=== PATIENT | female | born 1930 | race Caucasian/White ===

== ENCOUNTER 2016-12-15 08:36 | Day surgery (SDC) | payer MEDICARE ==
[2016-12-09 11:05] VITALS: BMI 39.8
[~2016-12-15 08:36] MED LIST: LACTATED RINGERS 1,000 ML IV SCH
[2016-12-15 09:12] VITALS: RESP 18
[2016-12-15 09:22] VITALS: TEMP 98.1
[2016-12-15] MEDS: PHENYLEPHRINE 10% OPHTH DROPS 5 ML BTL OP ONE ×3 (09:22→09:46)
[2016-12-15] MEDS: FLURBIPROFEN 0.03% OPHTH DROPS 2.5 ML BTL OP ONE ×3 (09:24→09:48)
[2016-12-15] MEDS: CYCLOPENTOLATE 1% OPHTH SOLN 2 ML BTL OP ONE ×3 (09:34→09:50)
[2016-12-15] MEDS ORDERED: LIDOCAINE 1% 20 ML VIAL (10MG/ML) FOR IV START INTRADERMA ONE (09:41)
[2016-12-15] MEDS ORDERED: LIDOCAINE 1% INJ 10MG/ML (20 ML MDV) ONE (09:55)
[2016-12-15] MEDS ORDERED: PROPOFOL 10 MG/ML 20 ML VIAL IV ONE (09:55)
[2016-12-15] MEDS ORDERED: BALANCED SALT IRRIG SOLN COMB2 15 ML IRRIG.SOLN INTRAOCULA ONE (09:57)
[2016-12-15] MEDS ORDERED: HYALURONATE SODIUM INTRAOCULAR 1 EACH SYRINGE (10MG/ML) INTRAOCULA ONE (09:57)
[2016-12-15] MEDS ORDERED: EPINEPHrine (PF) 0.5 ML in BALANCED SALT IRRIG SOLN COMB2 500 ML IRRIGATION ONE (09:58)
--- NOTE | 2016-12-15 10:16 | P.OP ---
Date of Procedure: 12/15/16 Procedure(s) Performed: PREOPERATIVE DIAGNOSIS: Cataract, right eye. POSTOPERATIVE DIAGNOSIS: Cataract, right eye. OPERATION: Phacoemulsification cataract, right eye. DESCRIPTION OF PROCEDURE: The patient was taken to the preoperative holding area. Intravenous Propofol was given so as to bring about adequate sedation. The following mixture was given for local anesthesia: 5 mL of 2% lidocaine, 5 mL of 0.75% Marcaine, and 1 mL of Wydase. Approximately 4 mL was injected in the retrobulbar space of the surgical eye. Additional 1 mL was then directed to the temporal area of the surgical eye. This was performed to allow adequate neurological block of the facial muscles. The patient was revived and then taken into the operative room. The patient was prepped and draped in the usual sterile manner for the operative eye. A lid speculum was put into position. The conjunctiva was resected back from the limbus in the 12 o'clock position. Bleeding was controlled with electrocautery. A #69 blade was then used and a half-thickness scleral incision approximately 1-mm posterior to the limbus was made on bare sclera. This was shelved in the clear cornea using a crescent knife. Next a 15-degree blade was used to make a stab incision at the 3 o' clock position at the corneolimbal interface. Keratome blade was then used and the superior wound was extended into the anterior chamber. Viscoelastic was injected into the anterior chamber and to maintain its form. Next, a cystotome was used and a continuous anterior capsulotomy was made without difficulty. Hydrodissection using a blunt cannula and BSS was performed. Phaco probe was then employed and a groove extending from 12 to 6 o'clock in the lens was created. A Nolan wand was used through the stab incision so as to perform a divide and conquer technique. Next an irrigation aspiration probe was utilized and any residual cortex was removed from the eye. Again, viscoelastic was injected into the anterior chamber. An Dick posterior chamber lens implant was placed in the cartridge and injected into the anterior chamber without difficulty. The SinXenoOneey hook was utilized to spin the lens into position and this was again performed without any difficulty. The irrigation and aspiration probe was again employed and any residual viscoelastic was removed from the eye. Then BSS was injected into the limbal stab incision and the anterior chamber re-inflated. The conjunctiva was reapproximated using electrocautery. One drop of 0.25% Timoptic was placed over the corneal along with TobraDex ophthalmic ointment. Two sterile patches and a Baldwin eye shield were taped into position. The patient was transported to the recovery room in stable condition. Pathology: none sent Condition: stable Disposition: same day
[2016-12-15 10:34] VITALS: BP 148/71; PULSE 57
[2016-12-15] MEDS ORDERED: TIMOLOL 0.5% OPHTH SOLN (PF) 0.2 ML DROPERETTE OP ONE (23:00)
[2016-12-15] MEDS ORDERED: BUPIVACAINE (PF) 0.75% 5 ML, LIDOCAINE 4% (PF) 5 ML, HYALURONIDASE, HUMAN RECOMB 150 UNIT MISCELLANE ONE ×3 (23:00)
[2016-12-15] MEDS ORDERED: GENTAMICIN/PREDNISOL AC OPHTH OINT 3.5GM OPHTHALMIC ONE (23:00)
== END 2016-12-15 11:06 | disposition home or self-care (01) ==
LOC: OR 08:36
PROVIDERS: ATTEND Ophthalmology
DX: H25.13 Age-related nuclear cataract, bilateral (principal); I10 Essential (primary) hypertension; I20.9 Angina pectoris, unspecified; M19.90 Unspecified osteoarthritis, unspecified site; Z79.1 Long term (current) use of non-steroidal anti-inflammatories (NSAID); Z79.82 Long term (current) use of aspirin; Z79.899 Other long term (current) drug therapy; Z88.0 Allergy status to penicillin
CPT/HCPCS: 66984; V2632; J2001 ×2; J3470; J0171; J2704; 99152; 99153

== ENCOUNTER → 2017-02-02 | Day surgery (SDC) | payer MEDICARE ==
[2017-01-29 08:14] VITALS: BMI 39.8
[~2017-02-02] MED LIST changes: +BALANCED SALT IRRIG SOLN COMB2 15 ML IRRIG.SOLN IRRIGATION ONE; +BUPIVACAINE (PF) 0.75% 5 ML, LIDOCAINE 4% (PF) 5 ML, HYALURONIDASE, HUMAN RECOMB 150 UNIT MISCELLANE ONE; +EPINEPHrine (PF) 0.5 ML in BALANCED SALT IRRIG SOLN COMB2 500 ML IRRIGATION ONE; +GENTAMICIN/PREDNISOL AC OPHTH OINT 3.5GM OPHTHALMIC ONE; +HYALURONATE SODIUM INTRAOCULAR 1 EACH SYRINGE (10MG/ML) INTRAOCULA ONE; +LIDOCAINE 1% 20 ML VIAL (10MG/ML) FOR IV START INTRADERMA PRN; +PROPOFOL 10 MG/ML 20 ML VIAL IV ONE; +Pre Op ABX Message 1 EACH MISC MISCELLANE ONE; +TIMOLOL 0.5% OPHTH SOLN (PF) 0.2 ML DROPERETTE OP ONE
[2017-02-02] MEDS: CYCLOPENTOLATE 1% OPHTH SOLN 2 ML BTL OP ONE ×3 (09:26→09:54)
[2017-02-02] MEDS: PHENYLEPHRINE 10% OPHTH DROPS 5 ML BTL OP ONE ×4 (09:29→09:57)
[2017-02-02] MEDS: FLURBIPROFEN 0.03% OPHTH DROPS 2.5 ML BTL LEFT EYE SCH ×3 (09:35→10:00)
[2017-02-02 09:47] VITALS: RESP 16; TEMP 98.1
--- NOTE | 2017-02-02 10:24 | P.OP ---
Date of Procedure: 02/02/17 Procedure(s) Performed: PREOPERATIVE DIAGNOSIS: Cataract, left eye. POSTOPERATIVE DIAGNOSIS: Cataract, left eye. OPERATION: Phacoemulsification cataract, left eye. DESCRIPTION OF PROCEDURE: The patient was taken to the preoperative holding area. Intravenous Propofol was given so as to bring about adequate sedation. The following mixture was given for local anesthesia: 5 mL of 2% lidocaine, 5 mL of 0.75% Marcaine, and 1 mL of Wydase. Approximately 4 mL was injected in the retrobulbar space of the surgical eye. Additional 1 mL was then directed to the temporal area of the surgical eye. This was performed to allow adequate neurological block of the facial muscles. The patient was revived and then taken into the operative room. The patient was prepped and draped in the usual sterile manner for the operative eye. A lid speculum was put into position. The conjunctiva was resected back from the limbus in the 12 o'clock position. Bleeding was controlled with electrocautery. A #69 blade was then used and a half-thickness scleral incision approximately 1-mm posterior to the limbus was made on bare sclera. This was shelved in the clear cornea using a crescent knife. Next a 15-degree blade was used to make a stab incision at the 3 o' clock position at the corneolimbal interface. Keratome blade was then used and the superior wound was extended into the anterior chamber. Viscoelastic was injected into the anterior chamber and to maintain its form. Next, a cystotome was used and a continuous anterior capsulotomy was made without difficulty. Hydrodissection using a blunt cannula and BSS was performed. Phaco probe was then employed and a groove extending from 12 to 6 o'clock in the lens was created. A Nolan wand was used through the stab incision so as to perform a divide and conquer technique. Next an irrigation aspiration probe was utilized and any residual cortex was removed from the eye. Again, viscoelastic was injected into the anterior chamber. An Dick posterior chamber lens implant was placed in the cartridge and injected into the anterior chamber without difficulty. The SinPowWowHRey hook was utilized to spin the lens into position and this was again performed without any difficulty. The irrigation and aspiration probe was again employed and any residual viscoelastic was removed from the eye. Then BSS was injected into the limbal stab incision and the anterior chamber re-inflated. The conjunctiva was reapproximated using electrocautery. One drop of 0.25% Timoptic was placed over the corneal along with TobraDex ophthalmic ointment. Two sterile patches and a Baldwin eye shield were taped into position. The patient was transported to the recovery room in stable condition. Pathology: none sent Condition: stable Disposition: same day
[2017-02-02 10:55] VITALS: BP 137/53; PULSE 58
== END | disposition home or self-care (01) ==
LOC: OR 08:08
PROVIDERS: ATTEND Ophthalmology
DX: H26.9 Unspecified cataract (principal); I10 Essential (primary) hypertension; M06.9 Rheumatoid arthritis, unspecified; M19.90 Unspecified osteoarthritis, unspecified site; Z79.82 Long term (current) use of aspirin; Z79.1 Long term (current) use of non-steroidal anti-inflammatories (NSAID); Z79.899 Other long term (current) drug therapy; Z88.0 Allergy status to penicillin; Z88.8 Allergy status to other drugs, medicaments and biological substances
CPT/HCPCS: 66984; V2632; J2001; J3470; J0171; J2704

== ENCOUNTER 2019-01-14 08:48 | Observation (INO) | payer MEDICARE ==
[2019-01-14] MEDS ORDERED: NITROGLYCERIN OINT 1 INCH/GM PACKET TOPICAL STA (08:55)
[2019-01-14] MEDS ORDERED: NITROGLYCERIN SL TABS 0.4 MG TAB SUBLINGUAL STA (08:55)
--- NOTE | 2019-01-14 09:05 | ED ---
General Adult HPI - General Chief complaint: Chest Pain Stated complaint: Chest pain Time Seen by Provider: 01/14/19 08:48 Source: patient, EMS, RN notes reviewed Mode of arrival: EMS Limitations: no limitations - History of Present Illness Initial comments: This is an 88-year-old female presents emergency Department complaining of chest pain since 2 AM. Patient states pain radiates to her back and it has made her short of breath. Patient states she has a history of high blood pressure atrial fibrillation and one heart attack. Patient states she is not a smoker. Patient states the pain is still there at this time. EMS did give her an aspirin but did not give her any nitroglycerin. Patient denies any nausea or diaphoresis. Patient denies abdominal pain. Patient denies any recent fever chills or cough. Patient denies headache patient denies numbness or weakness that is focal. Patient denies any lightheadedness dizziness or near syncopal episode. Patient denies any swelling to the legs or calf tenderness to the calves. - Related Data Home Medications Medication Instructions Recorded Confirmed amLODIPine BESYLATE [Norvasc] 5 mg PO HS 12/09/16 01/14/19 Apixaban [Eliquis] 2.5 mg PO HS 01/14/19 01/14/19 Allergies Allergy/AdvReac Type Severity Reaction Status Date / Time Penicillins Allergy Unknown Verified 01/14/19 09:37 ibuprofen [From Advil] AdvReac Unknown Unknown Verified 01/14/19 09:37 Review of Systems ROS Statement: Those systems with pertinent positive or pertinent negative responses have been documented in the HPI. ROS Other: All systems not noted in ROS Statement are negative. Past Medical History Past Medical History: Atrial Fibrillation, Chest Pain / Angina, Hypertension, Myocardial Infarction ([place]), Rheumatoid Arthritis (RA) Additional Past Medical History / Comment(s): constipation, "fluttering" in heart, varicose veins, hemorrhoids, History of Any Multi-Drug Resistant Organisms: None Reported Past Surgical History: Appendectomy, Hysterectomy Additional Past Surgical History / Comment(s): cataract rt eye Past Anesthesia/Blood Transfusion Reactions: No Reported Reaction Past Psychological History: Anxiety Smoking Status: Never smoker Past Alcohol Use History: None Reported Past Drug Use History: None Reported - Past Family History Mother Family Medical History: Cancer General Exam - General Exam Comments Initial Comments: GENERAL: Patient is well-developed and well-nourished. Patient is nontoxic and well- hydrated and is in mild distress. ENT: Neck is soft and supple. No significant lymphadenopathy is noted. Oropharynx is clear. Moist mucous membranes. Neck has full range of motion without eliciting any pain. EYES: The sclera were anicteric and conjunctiva were pink and moist. Extraocular movements were intact and pupils were equal round and reactive to light. Eyelids were unremarkable. PULMONARY: Unlabored respirations. Good breath sounds bilaterally. No audible rales rhonchi or wheezing was noted. CARDIOVASCULAR: Patient is tachycardic in the 105 bpm and it is an irregular rate and rhythm ABDOMEN: Soft and nontender with normal bowel sounds. No palpable organomegaly was noted. There is no palpable pulsatile mass. SKIN: Skin is clear with no lesions or rashes and otherwise unremarkable. NEUROLOGIC: Patient is alert and oriented x3. Cranial nerves II through XII are grossly intact. Motor and sensory are also intact. Normal speech, volume and content. Symmetrical smile. MUSCULOSKELETAL: Normal extremities with adequate strength and full range of motion. No lower extremity swelling or edema. No calf tenderness. LYMPHATICS: No significant lymphadenopathy is noted PSYCHIATRIC: Normal psychiatric evaluation. Limitations: no limitations Course Vital Signs 01/14/19 01/14/19 01/14/19 08:52 08:57 09:30 Temperature 97.2 F L Pulse Rate 109 H 87 Respiratory 22 20 Rate Blood Pressure 136/102 144/90 138/91 O2 Sat by Pulse 93 L 97 Oximetry 01/14/19 01/14/19 01/14/19 10:00 11:00 11:25 Temperature Pulse Rate 66 82 87 Respiratory 22 17 16 Rate Blood Pressure 110/68 87/56 109/65 O2 Sat by Pulse 95 96 95 Oximetry Medical Decision Making - Medical Decision Making EKG shows atrial for ablation with rapid ventricular response at 107 bpm QRS is 130 QT interval 370 QTC is 493. Patient also has a right bundle branch block. Chest x-ray showed no acute abnormality. Patient was having no chest pain when I went back into reevaluate her. Patient states the Nitropaste seem to take the pain away. Patient was ordered an eliquis I did not start heparin even though I believe the patient is having unstable angina. I admitted the patient I spoke with Dr. Tirado agreed to accept the admission. I wrote admitting orders I consulted cardiology. I continue the aspirin and Nitropaste on the floor. Patient is a little more chest pain emergency department so an EKG was done. EKG showed A. fib at a rate of 84 bpm QRS is 144 QT interval 412 QTC is 46. Patient's EKG shows no ST segment elevation or depression. - Lab Data Result diagrams: 01/14/19 09:02 01/14/19 09:02 Lab Results 01/14/19 01/14/19 01/14/19 Range/Units 09:02 09:02 09:02 WBC 10.5 (3.8-10.6) k/uL RBC 4.84 (3.80-5.40) m/uL Hgb 14.1 (11.4-16.0) gm/dL Hct 43.4 (34.0-46.0) % MCV 89.6 (80.0-100.0) fL MCH 29.1 (25.0-35.0) pg MCHC 32.5 (31.0-37.0) g/dL RDW 14.4 (11.5-15.5) % Plt Count 253 (150-450) k/uL Neutrophils % 74 % Lymphocytes % 19 % Monocytes % 5 % Eosinophils % 1 % Basophils % 0 % Neutrophils # 7.8 H (1.3-7.7) k/uL Lymphocytes # 2.0 (1.0-4.8) k/uL Monocytes # 0.6 (0-1.0) k/uL Eosinophils # 0.1 (0-0.7) k/uL Basophils # 0.0 (0-0.2) k/uL PT 10.3 (9.0-12.0) sec INR 1.0 (<1.2) APTT 24.5 (22.0-30.0) sec Sodium 141 (137-145) mmol/L Potassium 4.3 (3.5-5.1) mmol/L Chloride 111 H (98-107) mmol/L Carbon Dioxide 23 (22-30) mmol/L Anion Gap 7 mmol/L BUN 11 (7-17) mg/dL Creatinine 0.64 (0.52-1.04) mg/dL Est GFR (CKD-EPI)AfAm >90 (>60 ml/min/1.73 sqM) Est GFR (CKD-EPI)NonAf 80 (>60 ml/min/1.73 sqM) Glucose 143 H (74-99) mg/dL Calcium 8.9 (8.4-10.2) mg/dL Magnesium 1.9 (1.6-2.3) mg/dL Total Bilirubin 1.1 (0.2-1.3) mg/dL AST 24 (14-36) U/L ALT 24 (9-52) U/L Alkaline Phosphatase 83 (38-126) U/L Troponin I (0.000-0.034) ng/mL Total Protein 7.4 (6.3-8.2) g/dL Albumin 3.9 (3.5-5.0) g/dL 01/14/19 Range/Units 09:02 WBC (3.8-10.6) k/uL RBC (3.80-5.40) m/uL Hgb (11.4-16.0) gm/dL Hct (34.0-46.0) % MCV (80.0-100.0) fL MCH (25.0-35.0) pg MCHC (31.0-37.0) g/dL RDW (11.5-15.5) % Plt Count (150-450) k/uL Neutrophils % % Lymphocytes % % Monocytes % % Eosinophils % % Basophils % % Neutrophils # (1.3-7.7) k/uL Lymphocytes # (1.0-4.8) k/uL Monocytes # (0-1.0) k/uL Eosinophils # (0-0.7) k/uL Basophils # (0-0.2) k/uL PT (9.0-12.0) sec INR (<1.2) APTT (22.0-30.0) sec Sodium (137-145) mmol/L Potassium (3.5-5.1) mmol/L Chloride (98-107) mmol/L Carbon Dioxide (22-30) mmol/L Anion Gap mmol/L BUN (7-17) mg/dL Creatinine (0.52-1.04) mg/dL Est GFR (CKD-EPI)AfAm (>60 ml/min/1.73 sqM) Est GFR (CKD-EPI)NonAf (>60 ml/min/1.73 sqM) Glucose (74-99) mg/dL Calcium (8.4-10.2) mg/dL Magnesium (1.6-2.3) mg/dL Total Bilirubin (0.2-1.3) mg/dL AST (14-36) U/L ALT (9-52) U/L Alkaline Phosphatase (38-126) U/L Troponin I <0.012 (0.000-0.034) ng/mL Total Protein (6.3-8.2) g/dL Albumin (3.5-5.0) g/dL Disposition Clinical Impression: Unstable angina pectoris Disposition: ADMITTED IP TO THIS [facility] Time of Disposition: 10:36
[2019-01-14 09:17] LABS: Basophils % (A) 0 %; Eosinophils # (A) 0.1 k/uL (0-0.7); Eosinophils % (A) 1 %; HCT 43.4 % (34.0-46.0); HGB 14.1 gm/dL (11.4-16.0); Lymphocytes % (A) 19 %; MCH 29.1 pg (25.0-35.0); MCHC 32.5 g/dL (31.0-37.0); MCV 89.6 fL (80.0-100.0); Mean Platelet Volume 7.1; Monocytes # (A) 0.6 k/uL (0-1.0); Monocytes % (A) 5 %; Neutrophils # (A) 7.8 k/uL (1.3-7.7); Neutrophils % (A) 74 %; Platelet Count 253 k/uL (150-450); RBC 4.84 m/uL (3.80-5.40); RDW 14.4 % (11.5-15.5); WBC 10.5 k/uL (3.8-10.6)
[2019-01-14 09:28] LABS: ALT 24 U/L (9-52); AST 24 U/L (14-36); Albumin 3.9 g/dL (3.5-5.0); Alkaline Phosphatase 83 U/L (38-126); Anion Gap 7 mmol/L; Blood Urea Nitrogen 11 mg/dL (7-17); Calcium 8.9 mg/dL (8.4-10.2); Carbon Dioxide 23 mmol/L (22-30); Chloride 111 mmol/L (98-107); Glucose 143 mg/dL (74-99); Magnesium 1.9 mg/dL (1.6-2.3); Sodium 141 mmol/L (137-145); Total Bilirubin 1.1 mg/dL (0.2-1.3); Total Protein 7.4 g/dL (6.3-8.2)
[2019-01-14 09:36] LABS: Partial Thromboplastin Time 24.5 sec (22.0-30.0); Prothrombin Time 10.3 sec (9.0-12.0)
--- NOTE | 2019-01-14 09:38 | XR ---
EXAMINATION TYPE: XR chest 2V DATE OF EXAM: 01/14/2019 COMPARISON: Chest x-ray February 24, 2016. HISTORY: Chest pain today. TECHNIQUE: Frontal and lateral views of the chest are obtained. FINDINGS: There is linear scarring lingula redemonstrated. There is chronic parenchymal change withou t suspicious new focal air space opacity, pleural effusion, or pneumothorax seen. The cardiac silhou ette size is mildly enlarged. The osseous structures are demineralized. IMPRESSION: Cardiomegaly and chronic changes without acute pulmonary process. No significant change from prior study.
[2019-01-14] MEDS ORDERED: ONDANSETRON 4 MG/2 ML VIAL IVP STA (09:42)
[2019-01-14 09:43] LABS: Potassium 4.3 mmol/L (3.5-5.1)
[2019-01-14] MEDS ORDERED: NITROGLYCERIN SL TABS 0.4 MG TAB SUBLINGUAL PRN (10:36)
[2019-01-14] MEDS: NITROGLYCERIN OINT 1 INCH/GM PACKET TOPICAL SCH ×3 (12:07→22:35)
[2019-01-14] MEDS ORDERED: MELATONIN 5 MG TABLET PO PRN (17:32)
[2019-01-14] MEDS: APIXABAN 2.5 MG TABLET PO SCH (20:03)
[2019-01-14] MEDS ORDERED: amLODIPine 5 MG TAB PO SCH (21:00)
--- NOTE | 2019-01-14 22:18 | HP ---
HISTORY AND PHYSICAL DATE OF SERVICE: January 14, 2019. PRESENTING COMPLAINT: Chest pain. HISTORY OF PRESENTING COMPLAINT: A very pleasant 88 -year-old patient of Dr. Vera whose chronic stable medical condition includes stress incontinence, urine, osteoarthritis, hypertension, anxiety. This morning, felt a pressure across the chest going up to the neck and shoulders, lasted for quite a while associated with shortness of breath. When she came to the ER, she says she got medications and she felt better. There was no perspiration. Patient admitted with unstable angina. No current symptoms. No prior cardiac history. REVIEW OF SYSTEMS: CONSTITUTIONAL: Tired. HEENT None. RESPIRATORY as above. CARDIOVASCULAR as above. GASTROINTESTINAL: None. GENITOURINARY: None. MUSCULOSKELETAL: Arthritic pain in joints. DERMATOLOGICAL, HEMATOLOGIC, LYMPHATIC: none. PSYCHIATRY none. NEUROLOGICAL none. PAST MEDICAL HISTORY: Urinary stress incontinence, osteoarthritis, hypertension, anxiety, questionable atrial fibrillation. Varicose veins, hemorrhoids. PAST SURGICAL HISTORY: Appendectomy, hysterectomy, cataract right eye. PSYCH HISTORY: Anxiety. SOCIAL HISTORY: Does not smoke or drink alcohol. Lives by herself. FAMILY HISTORY: Of cancer. HOME MEDICATIONS: Eliquis 2.5 p.o. b.i.d., Norvasc 5 mg p.o. q.h.s. ALLERGIES: TO PENICILLIN, IBUPROFEN. PHYSICAL EXAMINATION: VITAL SIGNS: Temperature 99.7, pulse 79, respiratory 18, blood pressure 106/71, pulse ox 94 percent on room air. GENERAL APPEARANCE: Well built, BMI 39, sitting on the edge of bed, awake. EYES: Pupils are equal. Conjunctivae normal. HEENT: External appearance of nose and ears normal. Oral cavity normal. NECK: JVD not raised. Mass not palpable. RESPIRATORY: Effort normal. LUNGS: Slightly decreased breath sounds. CARDIOVASCULAR: Heart sounds irregular. No edema. ABDOMEN: Soft, nontender. Liver and spleen not palpable. LYMPHATICS: No lymph nodes palpable in the neck and axilla. PSYCHIATRY: Alert and oriented times three. Mood and affect normal. MUSCULOSKELETAL: Evidence of osteoarthritis especially in the hands and knees. INVESTIGATIONS: White count 10.5, hemoglobin 14.1, potassium 4.3. BUN and creatinine is normal. Troponin times two negative. EKG tracing personally reviewed by me shows atrial fibrillation with a right bundle branch block pattern. Chest x-ray film personally reviewed by me shows cardiomegaly, questionable venous prominence. ASSESSMENT: 1. Unstable angina with the patient's cardiac risk factors including hypertension, her age. 2. Chronic urinary stress incontinence. 3. Primary osteoarthritis. 4. Essential hypertension. 5. Persistent atrial fibrillation rate controlled. 6. Anxiety not otherwise specified. PLAN: Patient is already on Eliquis, Norvasc, nitro paste was added. Cardiology being consulted. Given her age, she may be managed conservatively for unstable angina. Care was discussed with the patient. Copy to Dr. Vera. MMODL / IJN: [id number] /
[2019-01-15] MEDS: NITROGLYCERIN OINT 1 INCH/GM PACKET TOPICAL SCH ×2 (03:50→13:24)
--- NOTE | 2019-01-15 07:46 | P.CRDCN ---
History of Present Illness Consult date: 01/15/19 History of present illness: This is a 88-year-old female with history of chronic atrial fibrillation on anticoagulation therapy who follows with Dr. VC Jacobo as an outpatient. Patient came to the hospital with complaints of chest, shoulder and back pain for the last 2 days. The pain is not exertional in nature. Not associated with any nausea or vomiting. Patient claimed the pain was improved after the give some medication in the emergency room. Since then patient has been stable. Her EKG showed right bundle branch block as before and sinus rhythm. Cardiac enzymes are negative. Patient is feeling much better today. The pain appeared to be atypical for angina cannot be excluded. As patient seemed to be stable on medical therapy, we can continue her oral nitrates and increase her activity. If patient is stable, patient could be discharged home. Follow-up with Dr. JACKSON, as an outpatient within a week. Review of Systems As per the chart Past Medical History Past Medical History: Atrial Fibrillation, Chest Pain / Angina, Hypertension, Myocardial Infarction ([place]), Rheumatoid Arthritis (RA) Additional Past Medical History / Comment(s): constipation, "fluttering" in heart, varicose veins, hemorrhoids, Last Myocardial Infarction Date:: unknown. History of Any Multi-Drug Resistant Organisms: None Reported Past Surgical History: Appendectomy, Hysterectomy Additional Past Surgical History / Comment(s): cataract rt eye Past Anesthesia/Blood Transfusion Reactions: No Reported Reaction Past Psychological History: Anxiety Smoking Status: Never smoker Past Alcohol Use History: None Reported Past Drug Use History: None Reported - Past Family History Mother Family Medical History: Cancer Medications and Allergies Home Medications Medication Instructions Recorded Confirmed Type amLODIPine BESYLATE [Norvasc] 5 mg PO HS 12/09/16 01/14/19 History Apixaban [Eliquis] 2.5 mg PO BID 01/14/19 01/14/19 History Allergies Allergy/AdvReac Type Severity Reaction Status Date / Time Penicillins Allergy Unknown Verified 01/14/19 09:37 ibuprofen [From Advil] AdvReac Unknown Unknown Verified 01/14/19 09:37 Physical Exam Vitals: Vital Signs Temp Pulse Pulse Resp BP BP Pulse Ox 01/15/19 03:47 18 01/15/19 03:38 98.3 F 69 18 102/65 94 L 01/14/19 23:38 18 01/14/19 23:29 97.6 F 77 18 105/63 90 L 01/14/19 20:33 93 L 01/14/19 20:00 18 01/14/19 19:37 99.7 F H 79 18 116/71 94 L 01/14/19 16:00 98.2 F 83 18 118/62 94 L 01/14/19 12:26 98.3 F 93 16 118/63 94 L 01/14/19 12:00 83 23 92/52 95 01/14/19 11:30 88 27 H 106/65 94 L 01/14/19 11:25 87 16 109/65 95 01/14/19 11:00 82 17 87/56 96 01/14/19 10:00 66 22 110/68 95 01/14/19 09:30 87 20 138/91 97 01/14/19 08:57 144/90 01/14/19 08:52 97.2 F L 109 H 22 136/102 93 L Intake and Output 01/14/19 01/15/19 01/15/19 22:59 06:59 14:59 Other: Voiding Method Toilet Toilet # Voids 1 1 GENERAL EXAM: Patient is alert and oriented and doesn't appear to be in any acute distress HEENT: Normocephalic. Normal reaction of pupils, equal size, normal range of extraocular motion. No erythema or exudates in the throat. NECK: No masses, no nuchal rigidity. CHEST: No chest wall deformity. LUNGS: Equal air entry with no crackles or wheeze. HEART: S1 and S2 normal with no audible mumurs or gallops. Regular rhythm, femorals equal on both sides.. ABDOMEN: No hepatosplenomegaly, normal bowel sounds, no guarding or rigidity. SKIN: No rashes CENTRAL NERVOUS SYSTEM: No focal deficits. EXTREMITIES: No cyanosis, clubbing or edema. Results 01/14/19 09:02 01/14/19 09:02 Cardiac Enzymes 01/14/19 01/14/19 01/14/19 Range/Units 09:02 09:02 16:11 AST 24 (14-36) U/L Troponin I <0.012 <0.012 (0.000-0.034) ng/mL 01/14/19 Range/Units 21:36 AST (14-36) U/L Troponin I <0.012 (0.000-0.034) ng/mL Coagulation 01/14/19 Range/Units 09:02 PT 10.3 (9.0-12.0) sec APTT 24.5 (22.0-30.0) sec CBC 01/14/19 Range/Units 09:02 WBC 10.5 (3.8-10.6) k/uL RBC 4.84 (3.80-5.40) m/uL Hgb 14.1 (11.4-16.0) gm/dL Hct 43.4 (34.0-46.0) % Plt Count 253 (150-450) k/uL Comprehensive Metabolic Panel 01/14/19 Range/Units 09:02 Sodium 141 (137-145) mmol/L Potassium 4.3 (3.5-5.1) mmol/L Chloride 111 H (98-107) mmol/L Carbon Dioxide 23 (22-30) mmol/L BUN 11 (7-17) mg/dL Creatinine 0.64 (0.52-1.04) mg/dL Glucose 143 H (74-99) mg/dL Calcium 8.9 (8.4-10.2) mg/dL AST 24 (14-36) U/L ALT 24 (9-52) U/L Alkaline Phosphatase 83 (38-126) U/L Total Protein 7.4 (6.3-8.2) g/dL Albumin 3.9 (3.5-5.0) g/dL Current Medications Generic Name Dose Route Start Last Admin Trade Name Freq PRN Reason Stop Dose Admin Amlodipine Besylate 5 mg 01/14/19 21:00 01/14/19 20:03 Norvasc PO 5 mg HS CHAIM Administration Apixaban 2.5 mg 01/14/19 21:00 01/14/19 20:03 Eliquis PO 2.5 mg BID CHAIM Administration Aspirin 325 mg 01/15/19 09:00 Aspirin PO DAILY CHAIM Melatonin 5 mg 01/14/19 17:32 01/14/19 20:03 Melatonin PO 5 mg HS PRN Administration Insomnia Nitroglycerin 1 inch 01/14/19 12:00 01/15/19 03:50 Nitro-Bid Oint TOPICAL Not Given Q6HR [facility] Nitroglycerin 0.4 mg 01/14/19 10:36 01/14/19 11:17 Nitrostat SUBLINGUAL 0.4 mg Q5M PRN Administration Chest Pain Intake and Output 01/14/19 01/15/19 01/15/19 22:59 06:59 14:59 Other: Voiding Method Toilet Toilet # Voids 1 1 01/14/19 09:02 01/14/19 09:02 EKG Interpretations (text) Atrial fibrillation with controlled ventricular response, right bundle-branch block Assessment and Plan (1) Chest pain Current Visit: Yes Status: Acute Code(s): R07.9 - CHEST PAIN, UNSPECIFIED SNOMED Code(s): 22439690 (2) Chronic atrial fibrillation Current Visit: Yes Status: Acute Code(s): I48.2 - CHRONIC ATRIAL FIBRILLATION SNOMED Code(s): 222444054 (3) Hypertension Current Visit: Yes Status: Acute Code(s): I10 - ESSENTIAL (PRIMARY) HYPERTENSION SNOMED Code(s): 06951374 Plan: Patient is doing well on current medical therapy. No evidence of myocardial infarction. I will increase her activity and continue her on by mouth nitrates along with current medical therapy. Patient could be discharged home to have follow-up with Dr. VC Jacobo.
[2019-01-15 07:50] LABS: Cholesterol 162 mg/dL (<200); HDL Cholesterol 46 mg/dL (40-60); LDL Cholesterol,Calculated 100 mg/dL (0-99); Triglycerides 80 mg/dL (<150)
[2019-01-15] MEDS: APIXABAN 2.5 MG TABLET PO SCH (07:57)
[2019-01-15] MEDS ORDERED: ASPIRIN 325 MG TAB PO SCH (09:00)
[2019-01-15 12:05] VITALS: BP 121/71; PULSE 72; RESP 16; TEMP 98.2
--- NOTE | 2019-01-15 22:22 | DS ---
DISCHARGE SUMMARY DATE OF ADMISSION: January 14, 2019. DATE OF DISCHARGE: January 15, 2019. FINAL DIAGNOSES: 1. Anterior chest wall pain could be unstable angina. 2. Chronic urinary stress incontinence. 3. Primary osteoarthritis. 4. Essential hypertension. 5. Persistent atrial fibrillation, rate controlled. 6. Anxiety, not otherwise specified. HOSPITAL COURSE: The patient presented with chest pain. Troponins were negative. LDL came back at 100. Patient is seen by the Cardiology. Nitrates were added. The patient is to follow up with Dr. Ericka Jacobo as an outpatient. Care was discussed with the patient's daughter at the bedside. No further chest pain. PHYSICAL EXAMINATION: Temperature 98.2, pulse 72, respiration 16, blood pressure 120/71. LUNGS: Clear. CARDIOVASCULAR: 1st and 2nd sounds normal. DISCHARGE MEDICATIONS: 1. Norvasc 5 mg q.h.s. 2. Eliquis 2.5 mg b.i.d. 3. Aspirin 81 mg daily, new. 4. Pepcid 20 mg b.i.d., new. 5. Imdur ER 50 mg p.o. daily, new. 6. Nitrostat 0.4 mg SL q.5h p.r.n., new. FOLLOWUP: Follow up with Dr. Vera in 3 days. Follow up with Dr. Ericka Jacobo in [address] Vera. JUAREZ / MIGUELINAN: [id number] /
== END 2019-01-15 15:40 | disposition home or self-care (01) ==
LOC: EC 08:48 → 1SOBS 10:44
PROVIDERS: ADMIT Hospitalist; ATTEND Hospitalist
DX: R07.89 Other chest pain (principal); I11.9 Hypertensive heart disease without heart failure; I48.2 Chronic atrial fibrillation; I48.1 Persistent atrial fibrillation; I45.10 Unspecified right bundle-branch block; M06.9 Rheumatoid arthritis, unspecified; M17.0 Bilateral primary osteoarthritis of knee; M19.042 Primary osteoarthritis, left hand; M19.041 Primary osteoarthritis, right hand; N39.3 Stress incontinence (female) (male); F41.9 Anxiety disorder, unspecified; K64.9 Unspecified hemorrhoids; I83.90 Asymptomatic varicose veins of unspecified lower extremity; Z79.01 Long term (current) use of anticoagulants; Z79.899 Other long term (current) drug therapy; Z88.0 Allergy status to penicillin; Z88.6 Allergy status to analgesic agent; I25.2 Old myocardial infarction; Z90.710 Acquired absence of both cervix and uterus; Z90.49 Acquired absence of other specified parts of digestive tract; Z98.41 Cataract extraction status, right eye; Z80.9 Family history of malignant neoplasm, unspecified
CPT/HCPCS: 96374; 99285; 36415; 93005; 83880; 80061; 80053; 83735; 84484; 85025; 85610; 85730; 71046; G0378 ×2; J2405

== ENCOUNTER 2019-01-16 10:13 | Observation (INO) | payer MEDICARE ==
[2019-01-16] MEDS ORDERED: NITROGLYCERIN OINT 1 INCH/GM PACKET TOPICAL STA (10:46)
[2019-01-16] MEDS ORDERED: ASPIRIN 81 MG PO STA (10:46)
--- NOTE | 2019-01-16 11:02 | ED ---
General Adult HPI - General Chief complaint: Chest Pain Stated complaint: CHEST PAIN Time Seen by Provider: 01/16/19 10:35 Source: patient, EMS, RN notes reviewed Mode of arrival: EMS Limitations: physical limitation - History of Present Illness Initial comments: This is an 88-year-old female who comes in emergency Department complaining of chest pain and shortness of breath. Patient also states she was just here first for similar symptoms and discharged home. Patient states she also has a little bit of anxiety. Patient also is complaining some coldness to both of her feet and some tightness in her head. Patient is very vague about her symptoms and she seems extremely anxious and worried. Patient denies any cough or fever. Patient denies any abdominal pain patient denies nausea vomiting or diarrhea. Patient denies any recent injury or fall or trauma. - Related Data Home Medications Medication Instructions Recorded Confirmed amLODIPine BESYLATE [Norvasc] 5 mg PO HS 12/09/16 01/16/19 Apixaban [Eliquis] 2.5 mg PO BID 01/14/19 01/16/19 Isosorbide Mononitrate ER [Imdur] 15 mg PO DAILY 01/16/19 01/16/19 Previous Rx's Medication Instructions Recorded Aspirin 81 mg PO DAILY #30 chewable 01/15/19 Famotidine [Pepcid] 20 mg PO BID #60 tablet 01/15/19 Nitroglycerin Sl Tabs [Nitrostat] 0.4 mg SUBLINGUAL Q5M PRN #25 tab 01/15/19 Allergies Allergy/AdvReac Type Severity Reaction Status Date / Time Penicillins Allergy Unknown Verified 01/16/19 10:31 ibuprofen [From Advil] AdvReac Unknown Unknown Verified 01/16/19 10:31 Review of Systems ROS Statement: Those systems with pertinent positive or pertinent negative responses have been documented in the HPI. ROS Other: All systems not noted in ROS Statement are negative. Past Medical History Past Medical History: Atrial Fibrillation, Chest Pain / Angina, Hypertension, Myocardial Infarction (HI), Rheumatoid Arthritis (RA) Additional Past Medical History / Comment(s): constipation, "fluttering" in heart, varicose veins, hemorrhoids, Last Myocardial Infarction Date:: unknown. History of Any Multi-Drug Resistant Organisms: None Reported Past Surgical History: Appendectomy, Hysterectomy Additional Past Surgical History / Comment(s): cataract rt eye Past Anesthesia/Blood Transfusion Reactions: No Reported Reaction Past Psychological History: Anxiety Smoking Status: Never smoker Past Alcohol Use History: None Reported Past Drug Use History: None Reported - Past Family History Mother Family Medical History: Cancer General Exam - General Exam Comments Initial Comments: GENERAL: Patient is well-developed and well-nourished. Patient is nontoxic and well- hydrated and is in no acute distress. ENT: Neck is soft and supple. No significant lymphadenopathy is noted. Oropharynx is clear. Moist mucous membranes. Neck has full range of motion without eliciting any pain. EYES: The sclera were anicteric and conjunctiva were pink and moist. Extraocular movements were intact and pupils were equal round and reactive to light. Eyelids were unremarkable. PULMONARY: Unlabored respirations. Good breath sounds bilaterally. No audible rales rhonchi or wheezing was noted. CARDIOVASCULAR: There is a regular rate and rhythm without any murmurs gallops or rubs. ABDOMEN: Soft and nontender with normal bowel sounds. No palpable organomegaly was noted. There is no palpable pulsatile mass. SKIN: Skin is clear with no lesions or rashes and otherwise unremarkable. NEUROLOGIC: Patient is alert and oriented x3. Cranial nerves II through XII are grossly intact. Motor and sensory are also intact. Normal speech, volume and content. Symmetrical smile. MUSCULOSKELETAL: Normal extremities with adequate strength and full range of motion. No lower extremity swelling or edema. No calf tenderness. LYMPHATICS: No significant lymphadenopathy is noted PSYCHIATRIC: Patient is very anxious. Limitations: physical limitation Course Vital Signs 01/16/19 01/16/19 10:32 11:00 Temperature 97.3 F L Pulse Rate 95 96 Respiratory 18 18 Rate Blood Pressure 150/108 135/70 O2 Sat by Pulse 96 96 Oximetry Medical Decision Making - Medical Decision Making EKG shows atrial fibrillation at 87 bpm QRS is 1:30 QT interval 380 QTC is 457. Patient's EKG shows atrial fibrillation as well. Patient has a right bundle branch block. Chest x-ray shows no acute abnormality. I spoke with Dr. Martinez and Dr. Monzon I admitted the patient wrote admitting orders and consult cardiology I repeated cardiac enzymes. - Lab Data Result diagrams: 01/16/19 10:29 01/16/19 10:29 Lab Results 01/16/19 01/16/19 01/16/19 Range/Units 10:29 10:29 10:29 WBC 8.1 (3.8-10.6) k/uL RBC 4.77 (3.80-5.40) m/uL Hgb 13.9 (11.4-16.0) gm/dL Hct 43.3 (34.0-46.0) % MCV 90.8 (80.0-100.0) fL MCH 29.2 (25.0-35.0) pg MCHC 32.2 (31.0-37.0) g/dL RDW 14.2 (11.5-15.5) % Plt Count 274 (150-450) k/uL Neutrophils % 53 % Lymphocytes % 37 % Monocytes % 6 % Eosinophils % 2 % Basophils % 0 % Neutrophils # 4.3 (1.3-7.7) k/uL Lymphocytes # 3.0 (1.0-4.8) k/uL Monocytes # 0.5 (0-1.0) k/uL Eosinophils # 0.2 (0-0.7) k/uL Basophils # 0.0 (0-0.2) k/uL PT 10.4 (9.0-12.0) sec INR 1.0 (<1.2) APTT 22.5 (22.0-30.0) sec Sodium 142 (137-145) mmol/L Potassium 4.6 (3.5-5.1) mmol/L Chloride 110 H (98-107) mmol/L Carbon Dioxide 24 (22-30) mmol/L Anion Gap 8 mmol/L BUN 16 (7-17) mg/dL Creatinine 0.73 (0.52-1.04) mg/dL Est GFR (CKD-EPI)AfAm 85 (>60 ml/min/1.73 sqM) Est GFR (CKD-EPI)NonAf 74 (>60 ml/min/1.73 sqM) Glucose 134 H (74-99) mg/dL Calcium 9.4 (8.4-10.2) mg/dL Magnesium 2.3 (1.6-2.3) mg/dL Total Bilirubin 1.0 (0.2-1.3) mg/dL AST 29 (14-36) U/L ALT 40 (9-52) U/L Alkaline Phosphatase 92 (38-126) U/L Troponin I (0.000-0.034) ng/mL Total Protein 7.4 (6.3-8.2) g/dL Albumin 3.8 (3.5-5.0) g/dL Urine Color Urine Appearance (Clear) Urine pH (5.0-8.0) Ur Specific Franklin (1.001-1.035) Urine Protein (Negative) Urine Glucose (UA) (Negative) Urine Ketones (Negative) Urine Blood (Negative) Urine Nitrite (Negative) Urine Bilirubin (Negative) Urine Urobilinogen (<2.0) mg/dL Ur Leukocyte Esterase (Negative) 01/16/19 01/16/19 Range/Units 10:29 10:58 WBC (3.8-10.6) k/uL RBC (3.80-5.40) m/uL Hgb (11.4-16.0) gm/dL Hct (34.0-46.0) % MCV (80.0-100.0) fL MCH (25.0-35.0) pg MCHC (31.0-37.0) g/dL RDW (11.5-15.5) % Plt Count (150-450) k/uL Neutrophils % % Lymphocytes % % Monocytes % % Eosinophils % % Basophils % % Neutrophils # (1.3-7.7) k/uL Lymphocytes # (1.0-4.8) k/uL Monocytes # (0-1.0) k/uL Eosinophils # (0-0.7) k/uL Basophils # (0-0.2) k/uL PT (9.0-12.0) sec INR (<1.2) APTT (22.0-30.0) sec Sodium (137-145) mmol/L Potassium (3.5-5.1) mmol/L Chloride (98-107) mmol/L Carbon Dioxide (22-30) mmol/L Anion Gap mmol/L BUN (7-17) mg/dL Creatinine (0.52-1.04) mg/dL Est GFR (CKD-EPI)AfAm (>60 ml/min/1.73 sqM) Est GFR (CKD-EPI)NonAf (>60 ml/min/1.73 sqM) Glucose (74-99) mg/dL Calcium (8.4-10.2) mg/dL Magnesium (1.6-2.3) mg/dL Total Bilirubin (0.2-1.3) mg/dL AST (14-36) U/L ALT (9-52) U/L Alkaline Phosphatase (38-126) U/L Troponin I <0.012 (0.000-0.034) ng/mL Total Protein (6.3-8.2) g/dL Albumin (3.5-5.0) g/dL Urine Color Light Yellow Urine Appearance Clear (Clear) Urine pH 7.5 (5.0-8.0) Ur Specific Franklin 1.003 (1.001-1.035) Urine Protein Negative (Negative) Urine Glucose (UA) Negative (Negative) Urine Ketones Negative (Negative) Urine Blood Negative (Negative) Urine Nitrite Negative (Negative) Urine Bilirubin Negative (Negative) Urine Urobilinogen <2.0 (<2.0) mg/dL Ur Leukocyte Esterase Negative (Negative) Disposition Clinical Impression: Chest pain Disposition: ADMITTED IP TO THIS HOSP Referrals: Jaylan Vera DO [Primary Care Provider] - 1-2 days Time of Disposition: 13:18
[2019-01-16 11:07] LABS: Basophils % (A) 0 %; Eosinophils # (A) 0.2 k/uL (0-0.7); Eosinophils % (A) 2 %; HCT 43.3 % (34.0-46.0); HGB 13.9 gm/dL (11.4-16.0); Lymphocytes % (A) 37 %; MCH 29.2 pg (25.0-35.0); MCHC 32.2 g/dL (31.0-37.0); MCV 90.8 fL (80.0-100.0); Mean Platelet Volume 8.3; Monocytes # (A) 0.5 k/uL (0-1.0); Monocytes % (A) 6 %; Neutrophils # (A) 4.3 k/uL (1.3-7.7); Neutrophils % (A) 53 %; Platelet Count 274 k/uL (150-450); RBC 4.77 m/uL (3.80-5.40); RDW 14.2 % (11.5-15.5); WBC 8.1 k/uL (3.8-10.6)
[2019-01-16] MEDS: LORazepam 2 MG/ML INJ IV STA ×2 (11:08→13:42)
[2019-01-16 11:12] LABS: Appearance,Urine Clear (Clear); Bilirubin,Urine Negative (Negative); Blood,Urine Negative (Negative); Color,Urine Light Yellow; Glucose,Urine (UA) Negative (Negative); Ketones,Urine Negative (Negative); Leukocyte Esterase,Urine Negative (Negative); Nitrite,Urine Negative (Negative); PH, Urine 7.5 (5.0-8.0); Protein,Urine Negative (Negative); Specific Gravity,Urine 1.003 (1.001-1.035); Urobilinogen,Urine <2.0 mg/dL (<2.0)
[2019-01-16 11:15] LABS: Albumin 3.8 g/dL (3.5-5.0); Calcium 9.4 mg/dL (8.4-10.2); Magnesium 2.3 mg/dL (1.6-2.3); Potassium 4.6 mmol/L (3.5-5.1); Total Protein 7.4 g/dL (6.3-8.2)
[2019-01-16 11:17] LABS: Partial Thromboplastin Time 22.5 sec (22.0-30.0); Prothrombin Time 10.4 sec (9.0-12.0)
--- NOTE | 2019-01-16 11:17 | XR ---
EXAMINATION TYPE: XR chest 2V DATE OF EXAM: 01/16/2019 COMPARISON: 01/14/2019 TECHNIQUE: PA and lateral views submitted. HISTORY: Chest pain FINDINGS: The lungs are clear and there is no pneumothorax, pleural effusion, or focal pneumonia. Heart is en larged and there is diffuse osteopenia and arthropathy of the shoulders. Hypertrophic and degenerativ e change of the spine. Atherosclerotic change aorta. Linear changes at both lung bases suggestive of scar or atelectasis. IMPRESSION: 1. Cardiomegaly with linear atelectasis or scar bilaterally.
[2019-01-16] MEDS ORDERED: NITROGLYCERIN SL TABS 0.4 MG TAB SUBLINGUAL PRN (13:18)
[2019-01-16 14:28] VITALS: BMI 37.1
[2019-01-16] MEDS: NITROGLYCERIN OINT 1 INCH/GM PACKET TOPICAL SCH (17:50)
[2019-01-16] MEDS ORDERED: amLODIPine 5 MG TAB PO SCH (21:00)
[2019-01-16] MEDS ORDERED: MELATONIN 3 MG TABLET PO SCH (21:00)
[2019-01-16] MEDS: APIXABAN 2.5 MG TABLET PO SCH (21:33)
[2019-01-16] MEDS: FAMOTIDINE 20 MG TAB PO SCH (21:33)
[2019-01-17 00:27] VITALS: RESP 18
[2019-01-17] MEDS: NITROGLYCERIN OINT 1 INCH/GM PACKET TOPICAL SCH (01:28)
[2019-01-17 04:34] LABS: Cholesterol 206 mg/dL (<200); HDL Cholesterol 43 mg/dL (40-60); LDL Cholesterol,Calculated 140 mg/dL (0-99); Triglycerides 114 mg/dL (<150)
[2019-01-17 07:31] VITALS: BP 125/80; PULSE 74; TEMP 98.2
--- NOTE | 2019-01-17 08:30 | P.CRDCN ---
History of Present Illness History of present illness: This is a pleasant 88-year-old female past medical history significant for paroxysmal atrial fibrillation with controlled ventricular rate , long-term anticoagulation, aortic stenosis, hypertension, rheumatoid arthritis and gastroesophageal reflux disease. She denies history of coronary artery disease, diabetes mellitus or dyslipidemia. She follows in the office with Dr. Jacobo. We have been asked to see her in consultation for chest pain. This is her second admission in the last few days for similar complaints. The patient is seen and examined she is lying flat in bed resting comfortably in no acute distress on room air. She seems somewhat confused about the situation about why she came to the hospital. She denies symptoms of chest pain , dizziness, palpitations, nausea, vomiting or diaphoresis. She states she has baseline shortness of breath which has not changed in intensity over the previous week. She describes an intermittent dry cough. EKG reveals right bundle branch with underlying atrial fibrillation with controlled ventricular rate. Chest xray is negative for an acute cardiopulmonary process. Laboratory data reviewed, WBC 8.1, hemoglobin 13.9, platelets 274, sodium 142, potassium 4.6, creatinine 0.73, magnesium 2.3, cardiac enzymes negative 3, LDL 140, HDL 43. Current cardiac medications include Eliquis 2.5 mg twice a day, amlodipine 5 mg daily and Imdur 50 mg daily. Most recent echocardiogram obtained in the office October 2017 reveals preserved left ventricular systolic function with ejection fraction 55% and mild aortic stenosis with a mean gradient across the valve of 15 mmHg. Most recent stress test in 2016 with a dobutamine stress echocardiogram that was negative for stress-induced ischemia. At the time of my exam: CONSTITUTIONAL: Denies fever. Denies chills. EYES: Denies blurred vision. Denies vision changes. Denies eye pain. EARS, NOSE, MOUTH & THROAT: Denies headache. Denies sore throat. Denies ear pain. CARDIOVASCULAR: Denies chest pain. Denies shortness of breath. Denies orthopnea. Denies PND. Denies palpitations. RESPIRATORY: Denies cough. GASTROINTESTINAL: Denies abdominal pain. Denies diarrhea. Denies constipation. Denies nausea. Denies vomiting. MUSCULOSKELETAL: Denies myalgias. INTEGUMENTARY: Denies pruitis. Denies rash. NEUROLOGIC: Denies numbness. Denies tingling. Denies weakness. PSYCHIATRIC: Denies anxiety. Denies depression. ENDOCRINE: Denies fatigue. Denies weight change. Denies polydipsia. Denies polyurina. GENITOURINARY: Denies burning, hematuria or urgency with micturation. HEMATOLOGIC: Denies history of anemia. Denies bleeding. Blood pressure 125/80 heart rate 74 afebrile maintaining oxygen saturation on room air GENERAL: This is a 88-year-old female in no apparent distress at the time of my examination. HEENT: Head is atraumatic, normocephalic. Pupils are equal, round. Sclerae anicteric. Conjunctivae are clear. Mucous membranes of the mouth are moist. Neck is supple. There is no jugular venous distention. No carotid bruit is heard. LUNGS: Clear to auscultation no wheezes, rales or rhonchi. No chest wall tenderness is noted on palpation or with deep breathing. HEART: Irregular rate and rhythm with systolic ejection murmur at the base, no rubs or gallops. S1 and S2 heard. ABDOMEN: Soft, nontender. Bowel sounds are heard. No organomegaly noted. EXTREMITIES: No evidence of peripheral edema and no calf tenderness noted. VASCULAR: Radial and dorsalis pedis pulses palpated, no evidence of clubbing. NEUROLOGIC: Patient is awake, alert and oriented x3. Confusion about hospital admission and why she called EMS. ASSESSMENT Chest pain, atypical for angina per the ED note. No symptoms of chest pain verbalized to me currently or while at home. Paroxysmal atrial fibrillation on exterminator helper anti-coagulation Hypertension Aortic stenosis, mild PLAN Hemodynamically stable. No symptoms suggestive of angina. Home medications list aspirin and eliquis, aspirin should be discontinued. No documented CAD and no need for being on both medications. Increase activity and ambulation in the halls, if she remains stable she may be discharged home to follow up with Dr. Jacobo in 1-2 weeks. Thank you kindly for this consultation. Nurse Practitioner note has been reviewed, I agree with a documented findings and plan of care. Patient was seen and examined. Past Medical History Past Medical History: Atrial Fibrillation, Chest Pain / Angina, GERD/Reflux, Hypertension, Rheumatoid Arthritis (RA) Additional Past Medical History / Comment(s): Arthritis in multiple joints, palpitations, bilateral leg pain and swelling at times, L calf varicosity, constipation, hemorrhoids, urinary stress incontinence. Last Myocardial Infarction Date:: unknown. History of Any Multi-Drug Resistant Organisms: None Reported Past Surgical History: Appendectomy, Hysterectomy Additional Past Surgical History / Comment(s): cataract removals left/ rt eye with lens implants. Past Anesthesia/Blood Transfusion Reactions: No Reported Reaction Smoking Status: Never smoker - Past Family History Mother Family Medical History: Cancer Additional Family Medical History / Comment(s): Mother had breast cancer. Father Family Medical History: No Reported History Additional Family Medical History / Comment(s): Pt states her father was healthy. Medications and Allergies Home Medications Medication Instructions Recorded Confirmed Type amLODIPine BESYLATE [Norvasc] 5 mg PO HS 12/09/16 01/16/19 History Apixaban [Eliquis] 2.5 mg PO BID 01/14/19 01/16/19 History Famotidine [Pepcid] 20 mg PO BID #60 tablet 01/15/19 01/16/19 Rx Nitroglycerin Sl Tabs [Nitrostat] 0.4 mg SUBLINGUAL Q5M PRN #25 tab 01/15/1903/03 Rx Isosorbide Mononitrate ER [Imdur] 15 mg PO DAILY 01/16/19 01/16/19 History Allergies Allergy/AdvReac Type Severity Reaction Status Date / Time Penicillins Allergy Unknown Verified 01/16/19 10:31 ibuprofen [From Advil] AdvReac Unknown Unknown Verified 01/16/19 10:31 Physical Exam Vitals: Vital Signs Temp Pulse Pulse Resp BP BP Pulse Ox 01/17/19 07:10 98.2 F 74 18 125/80 95 01/17/19 03:44 18 01/17/19 03:24 97.6 F 81 18 116/80 94 L 01/17/19 00:00 98.5 F 76 18 114/66 93 L 01/16/19 20:00 98.0 F 86 18 114/75 90 L 01/16/19 16:00 89 18 01/16/19 14:38 89 18 01/16/19 14:20 97.8 F 89 18 107/74 95 01/16/19 13:30 108 H 113/58 95 01/16/19 13:00 109 H 107/73 97 01/16/19 12:30 101 H 120/90 95 01/16/19 12:00 107 H 132/86 01/16/19 11:00 96 18 135/70 96 01/16/19 10:32 97.3 F L 95 18 150/108 96 Intake and Output 01/16/19 01/17/19 01/17/19 22:59 06:59 14:59 Intake Total 400 Balance 400 Intake: Oral 400 Other: Voiding Method Toilet Toilet # Voids 2 2 Results 01/16/19 10:29 01/16/19 10:29 Cardiac Enzymes 01/16/19 01/16/19 01/16/19 Range/Units 10:29 10:29 16:27 AST 29 (14-36) U/L Troponin I <0.012 <0.012 (0.000-0.034) ng/mL 01/16/19 Range/Units 23:15 AST (14-36) U/L Troponin I <0.012 (0.000-0.034) ng/mL Coagulation 01/16/19 Range/Units 10:29 PT 10.4 (9.0-12.0) sec APTT 22.5 (22.0-30.0) sec Lipids 01/16/19 Range/Units 07:35 Triglycerides 114 (<150) mg/dL Cholesterol 206 H (<200) mg/dL HDL Cholesterol 43 (40-60) mg/dL CBC 01/16/19 Range/Units 10:29 WBC 8.1 (3.8-10.6) k/uL RBC 4.77 (3.80-5.40) m/uL Hgb 13.9 (11.4-16.0) gm/dL Hct 43.3 (34.0-46.0) % Plt Count 274 (150-450) k/uL Comprehensive Metabolic Panel 01/16/19 Range/Units 10:29 Sodium 142 (137-145) mmol/L Potassium 4.6 (3.5-5.1) mmol/L Chloride 110 H (98-107) mmol/L Carbon Dioxide 24 (22-30) mmol/L BUN 16 (7-17) mg/dL Creatinine 0.73 (0.52-1.04) mg/dL Glucose 134 H (74-99) mg/dL Calcium 9.4 (8.4-10.2) mg/dL AST 29 (14-36) U/L ALT 40 (9-52) U/L Alkaline Phosphatase 92 (38-126) U/L Total Protein 7.4 (6.3-8.2) g/dL Albumin 3.8 (3.5-5.0) g/dL Current Medications Generic Name Dose Route Start Last Admin Trade Name Freq PRN Reason Stop Dose Admin Amlodipine Besylate 5 mg 01/16/19 21:00 01/16/19 21:33 Norvasc PO 5 mg HS CHAIM Administration Apixaban 2.5 mg 01/16/19 21:00 01/16/19 21:33 Eliquis PO 2.5 mg BID CHAIM Administration Famotidine 20 mg 01/16/19 21:00 01/16/19 21:33 Pepcid PO 20 mg BID CHAIM Administration Isosorbide Mononitrate 15 mg 01/17/19 09:00 Imdur PO DAILY CHAIM Melatonin 3 mg 01/16/19 21:00 01/16/19 21:33 Melatonin PO 3 mg HS CHAIM Administration Nitroglycerin 0.4 mg 01/16/19 13:18 Nitrostat SUBLINGUAL Q5M PRN Chest Pain Intake and Output 01/16/19 01/17/19 01/17/19 22:59 06:59 14:59 Intake Total 400 Balance 400 Intake: Oral 400 Other: Voiding Method Toilet Toilet # Voids 2 2 01/16/19 10:29 01/16/19 10:29
[2019-01-17] MEDS: FAMOTIDINE 20 MG TAB PO SCH (08:42)
[2019-01-17] MEDS: APIXABAN 2.5 MG TABLET PO SCH (08:42)
[2019-01-17] MEDS ORDERED: ISOSORBIDE MONONITRATE ER 15 MG TAB PO SCH (09:00)
[2019-01-17] MEDS ORDERED: ASPIRIN 325 MG TAB PO SCH (09:00)
--- NOTE | 2019-01-17 10:00 | P.HPIM ---
History of Present Illness H&P Date: 01/16/19 This is a very pleasant 88-year-old female with a past medical history significant for atrial fibrillation with controlled medical rate on long-term anti-correlation, R Shun stenosis, hypertension, GERD comes in and complains of chest pain. Patient says that she was just discharged yesterday after cardiology cleared her when she was admitted in observation for chest pain. She said that she went home and she was upset and very angry. She started having chest pain this morning. She does comes into the ER again for further evaluation and management. Patient does not complain of any shortness of breath or cough, no abdominal pain, nausea and vomiting, no diarrhea constipation, no tingling numbness in the extremities, no itch no rash. ER course-patient's vitals and lab works were stable. Patient was admitted to observation with cardiology consult. At the time examination the patient was not having any chest pain. Review of Systems All systems: negative Past Medical History Past Medical History: Atrial Fibrillation, Chest Pain / Angina, GERD/Reflux, Hypertension, Rheumatoid Arthritis (RA) Additional Past Medical History / Comment(s): Arthritis in multiple joints, palpitations, bilateral leg pain and swelling at times, L calf varicosity, constipation, hemorrhoids, urinary stress incontinence. Last Myocardial Infarction Date:: unknown. History of Any Multi-Drug Resistant Organisms: None Reported Past Surgical History: Appendectomy, Hysterectomy Additional Past Surgical History / Comment(s): cataract removals left/ rt eye with lens implants. Past Anesthesia/Blood Transfusion Reactions: No Reported Reaction Smoking Status: Never smoker - Past Family History Mother Family Medical History: Cancer Additional Family Medical History / Comment(s): Mother had breast cancer. Father Family Medical History: No Reported History Additional Family Medical History / Comment(s): Pt states her father was healthy. Medications and Allergies Home Medications Medication Instructions Recorded Confirmed Type amLODIPine BESYLATE [Norvasc] 5 mg PO HS 12/09/16 01/16/19 History Apixaban [Eliquis] 2.5 mg PO BID 01/14/19 01/16/19 History Famotidine [Pepcid] 20 mg PO BID #60 tablet 01/15/19 01/16/19 Rx Nitroglycerin Sl Tabs [Nitrostat] 0.4 mg SUBLINGUAL Q5M PRN #25 tab 01/15/1903/03 Rx Isosorbide Mononitrate ER [Imdur] 15 mg PO DAILY 01/16/19 01/16/19 History Allergies Allergy/AdvReac Type Severity Reaction Status Date / Time Penicillins Allergy Unknown Verified 01/16/19 10:31 ibuprofen [From Advil] AdvReac Unknown Unknown Verified 01/16/19 10:31 Physical Exam Vitals: Vital Signs Temp Pulse Pulse Resp BP BP Pulse Ox 01/17/19 08:00 74 18 01/17/19 07:10 98.2 F 74 18 125/80 95 01/17/19 03:44 18 01/17/19 03:24 97.6 F 81 18 116/80 94 L 01/17/19 00:00 98.5 F 76 18 114/66 93 L 01/16/19 20:00 98.0 F 86 18 114/75 90 L 01/16/19 16:00 89 18 01/16/19 14:38 89 18 01/16/19 14:20 97.8 F 89 18 107/74 95 01/16/19 13:30 108 H 113/58 95 01/16/19 13:00 109 H 107/73 97 01/16/19 12:30 101 H 120/90 95 01/16/19 12:00 107 H 132/86 01/16/19 11:00 96 18 135/70 96 01/16/19 10:32 97.3 F L 95 18 150/108 96 Intake and Output 01/16/19 01/17/19 01/17/19 22:59 06:59 14:59 Intake Total 400 Balance 400 Intake: Oral 400 Other: Voiding Method Toilet Toilet Toilet # Voids 2 2 On exam, alert and oriented x3. HEENT: Conjunctivae normal. eyes normal. NECK: No JVD. No thyroid enlargement. No LNs CARDIOVASCULAR: S1, S2 heard. Systolic murmur. RESPIRATION: Breath sounds diminished in the bases. No rhonchi or crackles. No bronchial breathing. ABDOMEN: Soft, nontender . No guarding. no masses palpable. No ascites, No hepatosplenomegaly.Bowel sounds heard. LEGS: No edema. no swelling NERVOUS SYSTEM: Cranial N 2-12 grossly normal. Moves all 4 limbs. No focal deficits. No sensory deficit. No signs of cerebellar dysfucntion. Skin: no ulcer no rash Results CBC & Chem 7: 01/16/19 10:29 01/16/19 10:29 Labs: Abnormal Lab Results - Last 24 Hours (Table) 01/16/19 01/16/19 Range/Units 07:35 10:29 Chloride 110 H (98-107) mmol/L Glucose 134 H (74-99) mg/dL Cholesterol 206 H (<200) mg/dL LDL Cholesterol, Calc 140 H (0-99) mg/dL Thrombosis Risk Factor Assmnt - Choose All That Apply Any of the Below Risk Factors Present?: Yes Each Factor Represents 1 point: Obesity (BMI >25), Varicose veins Other Risk Factors: Yes Each Risk Factor Represents 3 Points: Age 75 years or older Other congenital or acquired thrombophilia - If yes, enter type in comment: No Thrombosis Risk Factor Assessment Total Risk Factor Score: 5 Thrombosis Risk Factor Assessment Level: High Risk Assessment and Plan Assessment: - Chest pain probably and I related rule out cardiac cause - History of A. fib on anti-correlation - Hypertension - Arctic stenosis - History of rheumatoid arthritis - History of GERD Plan - We'll admit the patient to observation - Cardiology consulted with the patient the recommendation. The symptoms look more like anxiety related. - We'll continue rest of medications - DVT and GI prophylaxis - Patient patient is an observation - Patient is full code Time with Patient: Greater than 30
--- NOTE | 2019-01-17 10:06 | P.DS ---
Providers Date of admission: 01/16/19 13:20 Expected date of discharge: 01/17/19 Attending physician: Mati Fontana MD Consults: 01/16/19 13:20 Consult Physician Urgent Consulting Provider: [facility] Consult Reason/Comments: Chest pain Do you want consulting provider notified?: Yes Primary care physician: [facility] Course: Very pleasant 88-year-old female with a past medical history stated in the H&P comes in for chest pain. Probably an that are related. Cardiology saw in clear for discharge. At the time of discharge aspirin was DC'd and patient was continued on eliquis.. On the day of discharge the patient was not complaining of any chest pain, no racing heart. She is in good spirits and no more stress no more consciousness. Physical exam On exam, alert and oriented x3. HEENT: Conjunctivae normal. eyes normal. NECK: No JVD. No thyroid enlargement. No LNs CARDIOVASCULAR: S1, S2 systolic murmur RESPIRATION: Breath sounds diminished in the bases. No rhonchi or crackles. No bronchial breathing. ABDOMEN: Soft, nontender . No guarding. no masses palpable. No ascites, No hepatosplenomegaly.Bowel sounds heard. LEGS: No edema. no swelling NERVOUS SYSTEM: Cranial N 2-12 grossly normal. Moves all 4 limbs. No focal deficits. No sensory deficit. No signs of cerebellar dysfucntion. Skin: no ulcer no rash Plan - Discharge Summary Discharge Rx Participant: No New Discharge Prescriptions: Continue amLODIPine BESYLATE [Norvasc] 5 mg PO HS Apixaban [Eliquis] 2.5 mg PO BID Famotidine [Pepcid] 20 mg PO BID #60 tablet Nitroglycerin Sl Tabs [Nitrostat] 0.4 mg SUBLINGUAL Q5M PRN #25 tab PRN Reason: Chest Pain Isosorbide Mononitrate ER [Imdur] 15 mg PO DAILY Discontinued Aspirin 81 mg PO DAILY #30 chewable Discharge Medication List amLODIPine BESYLATE [Norvasc] 5 mg PO HS 12/09/16 [History] Apixaban [Eliquis] 2.5 mg PO BID 01/14/19 [History] Famotidine [Pepcid] 20 mg PO BID #60 tablet 01/15/19 [Rx] Nitroglycerin Sl Tabs [Nitrostat] 0.4 mg SUBLINGUAL Q5M PRN #25 tab 01/15/19 [Rx ] Isosorbide Mononitrate ER [Imdur] 15 mg PO DAILY 01/16/19 [History] Follow up Appointment(s)/Referral(s): Jaylan Vera DO [Primary Care Provider] - 1-2 days Cabrera Jacobo MD [STAFF PHYSICIAN] - 1 Week Activity/Diet/Wound Care/Special Instructions: If you start having any chest pain, any racing heart, any increased shortness of breath or increased cough, any lightheadedness or dizziness, any loss of vision or blurry vision, any weakness in any pattern of the body, any increased bleeding from anywhere, any dark colored stools, any bloody vomitus, any altered mental status, any to call 911 and come to the ER immediately Discharge Disposition: HOME SELF-CARE
== END 2019-01-17 12:10 | disposition home or self-care (01) ==
LOC: EC 10:13 → 1SOBS 13:20
PROVIDERS: ADMIT Internal Medicine; ATTEND Internal Medicine
DX: R07.9 Chest pain, unspecified (principal); R06.02 Shortness of breath; R05 Cough; I48.0 Paroxysmal atrial fibrillation; K21.9 Gastro-esophageal reflux disease without esophagitis; F41.9 Anxiety disorder, unspecified; I25.2 Old myocardial infarction; M06.9 Rheumatoid arthritis, unspecified; M13.0 Polyarthritis, unspecified; I10 Essential (primary) hypertension; K59.00 Constipation, unspecified; I83.92 Asymptomatic varicose veins of left lower extremity; N39.3 Stress incontinence (female) (male); M79.604 Pain in right leg; M79.605 Pain in left leg; I35.0 Nonrheumatic aortic (valve) stenosis; E66.9 Obesity, unspecified; Z68.41 Body mass index [BMI] 40.0-44.9, adult; M79.89 Other specified soft tissue disorders; Z79.899 Other long term (current) drug therapy; Z79.01 Long term (current) use of anticoagulants; Z88.0 Allergy status to penicillin; Z88.8 Allergy status to other drugs, medicaments and biological substances; Z80.3 Family history of malignant neoplasm of breast
CPT/HCPCS: 96376; 96374; 99285; 36415; 93005; 80061; 80053; 83735; 84484; 85025; 85610; 85730; 81003; 71046; G0378 ×2; J2060

== ENCOUNTER 2020-05-24 11:37 | Inpatient (IN) | payer MEDICARE ==
--- NOTE | 2020-05-24 12:05 | ED ---
General Adult HPI - General Chief complaint: Chest Pain Stated complaint: Chest pain Time Seen by Provider: 05/24/20 11:41 Source: patient, EMS, RN notes reviewed, old records reviewed Mode of arrival: EMS Limitations: no limitations - History of Present Illness Initial comments: 89-year-old female presented for an episode of chest pain. Patient has history of atrial fibrillation currently anticoagulated and taking Norvasc for hypertension. She had an episode of chest pain which lasted just several minutes, EMS was called and the patient was transported to the emergency department. Her chest pain is resolved. She has some mild associated dyspnea. She has history of atrial fibrillation and was found to be in a very slow ventricular response by EMS. She is not currently on any beta blockers and only taking Norvasc for hypertension. She was at her primary care office yesterday and reports that she had a very slow heart rate at that time as well. She reportedly had laboratory testing completed yesterday but is uncertain of these results. Denies fever. Denies vomiting or diarrhea. She has been eating and drinking well. - Related Data Home Medications Medication Instructions Recorded Confirmed amLODIPine BESYLATE [Norvasc] 5 mg PO HS 12/09/16 01/16/19 Apixaban [Eliquis] 2.5 mg PO BID 01/14/19 01/16/19 Isosorbide Mononitrate ER [Imdur] 15 mg PO DAILY 01/16/19 01/16/19 Previous Rx's Medication Instructions Recorded Famotidine [Pepcid] 20 mg PO BID #60 tablet 01/15/19 Nitroglycerin Sl Tabs [Nitrostat] 0.4 mg SUBLINGUAL Q5M PRN #25 tab 01/15/19 Allergies Allergy/AdvReac Type Severity Reaction Status Date / Time Penicillins Allergy Unknown Verified 01/16/19 10:31 ibuprofen [From Advil] AdvReac Unknown Unknown Verified 01/16/19 10:31 Review of Systems ROS Statement: Those systems with pertinent positive or pertinent negative responses have been documented in the HPI. ROS Other: All systems not noted in ROS Statement are negative. Past Medical History Past Medical History: Atrial Fibrillation, Chest Pain / Angina, GERD/Reflux, Hypertension, Rheumatoid Arthritis (RA) Additional Past Medical History / Comment(s): Arthritis in multiple joints, palpitations, bilateral leg pain and swelling at times, L calf varicosity, constipation, hemorrhoids, urinary stress incontinence. Last Myocardial Infarction Date:: unknown. History of Any Multi-Drug Resistant Organisms: None Reported Past Surgical History: Appendectomy, Hysterectomy Additional Past Surgical History / Comment(s): cataract removals left/ rt eye with lens implants. Past Anesthesia/Blood Transfusion Reactions: No Reported Reaction Past Psychological History: Anxiety Smoking Status: Never smoker Past Alcohol Use History: None Reported Past Drug Use History: None Reported - Past Family History Mother Family Medical History: Cancer Additional Family Medical History / Comment(s): Mother had breast cancer. Father Family Medical History: No Reported History Additional Family Medical History / Comment(s): Pt states her father was healthy. General Exam Limitations: no limitations General appearance: alert, in no apparent distress Head exam: Present: atraumatic, normocephalic Eye exam: Present: normal appearance, PERRL ENT exam: Present: normal exam Neck exam: Present: normal inspection. Absent: tenderness, meningismus Respiratory exam: Present: normal lung sounds bilaterally. Absent: respiratory distress, wheezes Cardiovascular Exam: Present: bradycardia, irregular rhythm GI/Abdominal exam: Present: soft. Absent: distended, tenderness Extremities exam: Present: normal inspection, normal capillary refill. Absent: pedal edema Neurological exam: Present: alert, CN II-XII intact. Absent: motor sensory deficit Psychiatric exam: Present: normal affect, normal mood Skin exam: Present: warm, dry, intact. Absent: cyanosis, diaphoretic Course Vital Signs 05/24/20 05/24/20 11:38 11:44 Temperature 98.0 F Pulse Rate 35 L Pulse Rate [ 39 L Adult And Pediatric Neurologist ] Respiratory 16 Rate Blood Pressure 196/88 O2 Sat by Pulse 98 Oximetry EKG Findings - EKG Comments: EKG Findings:: EKG: Atrial fibrillation with slow ventricular response, PVC, right bundle branch block, rate of 44, QRS duration 142, QTC 425, no ST segment elevation. Medical Decision Making - Medical Decision Making 89-year-old female presenting for evaluation of an episode of chest pain and bradycardia. According to the patient's daughter this bradycardia in the 30s was noted yesterday care office and laboratory testing was obtained with no follow-up. She had an appointment to see the rotor casting machine operator this afternoon but presented by EMS secondary to her complaint of chest pain. She has no chest pain at the time my evaluation. Her EKG shows atrial fibrillation with slow ventricular response in the 30s-40s. Blood pressure is stable and she is mildly hypertensive. She is not on any beta blockers, currently taking only Norvasc for blood pressure. Her electrolytes are normal. She has a normal CBC. She has a negative initial troponin. I did contact Dr. Martinez he will accept admission, as well as Dr. Monzon covering for cardiology. - Lab Data Result diagrams: 05/24/20 11:48 05/24/20 11:48 Lab Results 05/24/20 05/24/20 05/24/20 Range/Units 11:48 11:48 11:48 WBC 6.9 (3.8-10.6) k/uL RBC 4.81 (3.80-5.40) m/uL Hgb 13.8 (11.4-16.0) gm/dL Hct 43.7 (34.0-46.0) % MCV 90.9 (80.0-100.0) fL MCH 28.7 (25.0-35.0) pg MCHC 31.6 (31.0-37.0) g/dL RDW 14.2 (11.5-15.5) % Plt Count 264 (150-450) k/uL Neutrophils % 43 % Lymphocytes % 47 % Monocytes % 6 % Eosinophils % 1 % Basophils % 1 % Neutrophils # 3.0 (1.3-7.7) k/uL Lymphocytes # 3.2 (1.0-4.8) k/uL Monocytes # 0.4 (0-1.0) k/uL Eosinophils # 0.1 (0-0.7) k/uL Basophils # 0.1 (0-0.2) k/uL PT 10.6 (9.0-12.0) sec INR 1.0 (<1.2) APTT 25.0 (22.0-30.0) sec Sodium 140 (137-145) mmol/L Potassium 4.7 (3.5-5.1) mmol/L Chloride 110 H (98-107) mmol/L Carbon Dioxide 23 (22-30) mmol/L Anion Gap 7 mmol/L BUN 20 H (7-17) mg/dL Creatinine 0.82 (0.52-1.04) mg/dL Est GFR (CKD-EPI)AfAm 73 (>60 ml/min/1.73 sqM) Est GFR (CKD-EPI)NonAf 64 (>60 ml/min/1.73 sqM) Glucose 115 H (74-99) mg/dL Calcium 9.4 (8.4-10.2) mg/dL Magnesium 2.1 (1.6-2.3) mg/dL Total Bilirubin 0.9 (0.2-1.3) mg/dL AST 24 (14-36) U/L ALT 20 (4-34) U/L Alkaline Phosphatase 88 (38-126) U/L Troponin I (0.000-0.034) ng/mL NT-Pro-B Natriuret Pep pg/mL Total Protein 7.6 (6.3-8.2) g/dL Albumin 4.2 (3.5-5.0) g/dL 05/24/20 05/24/20 Range/Units 11:48 11:48 WBC (3.8-10.6) k/uL RBC (3.80-5.40) m/uL Hgb (11.4-16.0) gm/dL Hct (34.0-46.0) % MCV (80.0-100.0) fL MCH (25.0-35.0) pg MCHC (31.0-37.0) g/dL RDW (11.5-15.5) % Plt Count (150-450) k/uL Neutrophils % % Lymphocytes % % Monocytes % % Eosinophils % % Basophils % % Neutrophils # (1.3-7.7) k/uL Lymphocytes # (1.0-4.8) k/uL Monocytes # (0-1.0) k/uL Eosinophils # (0-0.7) k/uL Basophils # (0-0.2) k/uL PT (9.0-12.0) sec INR (<1.2) APTT (22.0-30.0) sec Sodium (137-145) mmol/L Potassium (3.5-5.1) mmol/L Chloride (98-107) mmol/L Carbon Dioxide (22-30) mmol/L Anion Gap mmol/L BUN (7-17) mg/dL Creatinine (0.52-1.04) mg/dL Est GFR (CKD-EPI)AfAm (>60 ml/min/1.73 sqM) Est GFR (CKD-EPI)NonAf (>60 ml/min/1.73 sqM) Glucose (74-99) mg/dL Calcium (8.4-10.2) mg/dL Magnesium (1.6-2.3) mg/dL Total Bilirubin (0.2-1.3) mg/dL AST (14-36) U/L ALT (4-34) U/L Alkaline Phosphatase (38-126) U/L Troponin I <0.012 (0.000-0.034) ng/mL NT-Pro-B Natriuret Pep 1050 pg/mL Total Protein (6.3-8.2) g/dL Albumin (3.5-5.0) g/dL Critical Care Time Critical Care Time: Yes Total Critical Care Time: 35 Disposition Clinical Impression: Bradycardia, Chest pain, Chronic atrial fibrillation Disposition: ADMITTED IP TO THIS [facility] Condition: Stable Is patient prescribed a controlled substance at d/c from ED?: No Referrals: Jaylan Vera DO [Primary Care Provider] - 1-2 days Decision to Admit Reason: Admit from EC Decision Date: 05/24/20 Decision Time: 13:10
[2020-05-24 12:15] LABS: Basophils # (A) 0.1 k/uL (0-0.2); Basophils % (A) 1 %; Eosinophils # (A) 0.1 k/uL (0-0.7); Eosinophils % (A) 1 %; HCT 43.7 % (34.0-46.0); HGB 13.8 gm/dL (11.4-16.0); Lymphocytes # (A) 3.2 k/uL (1.0-4.8); Lymphocytes % (A) 47 %; MCH 28.7 pg (25.0-35.0); MCHC 31.6 g/dL (31.0-37.0); MCV 90.9 fL (80.0-100.0); Mean Platelet Volume 7.8; Monocytes # (A) 0.4 k/uL (0-1.0); Monocytes % (A) 6 %; Neutrophils % (A) 43 %; Platelet Count 264 k/uL (150-450); RBC 4.81 m/uL (3.80-5.40); RDW 14.2 % (11.5-15.5); WBC 6.9 k/uL (3.8-10.6)
[2020-05-24 12:24] LABS: Albumin 4.2 g/dL (3.5-5.0); Calcium 9.4 mg/dL (8.4-10.2); Magnesium 2.1 mg/dL (1.6-2.3); Potassium 4.7 mmol/L (3.5-5.1); Total Bilirubin 0.9 mg/dL (0.2-1.3); Total Protein 7.6 g/dL (6.3-8.2)
[2020-05-24 12:35] LABS: Prothrombin Time 10.6 sec (9.0-12.0)
--- NOTE | 2020-05-24 12:35 | XR ---
EXAMINATION TYPE: XR chest 1V portable DATE OF EXAM: 05/24/2020 COMPARISON: 01/16/2019 HISTORY: Chest pain TECHNIQUE: Single frontal view of the chest is obtained. FINDINGS: There is no focal air space opacity, pleural effusion, or pneumothorax seen. Heart is enla rged. Linear subsegmental changes most typical of atelectasis. Degenerative change of the spine. Diff use osteopenia and arthropathy shoulders. No overt failure. IMPRESSION: Global cardiomegaly. Linear changes in the lungs are felt to be most compatible with sca r or atelectasis.
[2020-05-24] MEDS ORDERED: ACETAMINOPHEN TAB 325 MG TAB PO PRN (13:06)
[2020-05-24] MEDS ORDERED: NALOXONE 0.4 MG/ML 1 ML VIAL IV PRN (13:06)
[2020-05-24] MEDS ORDERED: NITROGLYCERIN SL TABS 0.4 MG TAB SUBLINGUAL PRN (13:11)
--- NOTE | 2020-05-24 14:44 | P.CRDCN ---
History of Present Illness Consult date: 05/24/20 History of present illness: This is a 89-year-old female with history of chronic atrial fibrillation and also mild to moderate aortic stenosis who is admitted to the hospital with complaints of not feeling well. She claims that her periods where she feels shaky. She had no syncopal episodes. She may be slightly dizzy at times. She had episode of chest pain this morning and took 2 nitroglycerin with some relief. He has had episodes of chest pain in the past. Her EKG showed atrial fibrillation with slow ventricular response. Heart rate is in the 30s and 40s. She seemed to be reasonably comfortable at the time of my examination . Her blood pressure is high. We're going to get an echocardiogram to assess LV function and also to assess aortic stenosis. We will get thyroid function studies. If the thyroid functions are normal and if the heart rate remains slow, patient could be considered for permanent pacemaker implantation. We'll also check her aortic valve stenosis. Meanwhile patient will continue current medical therapy Review of Systems As per the chart Past Medical History Past Medical History: Atrial Fibrillation, Chest Pain / Angina, GERD/Reflux, Hypertension, Rheumatoid Arthritis (RA) Additional Past Medical History / Comment(s): Arthritis in multiple joints, palpitations, bilateral leg pain and swelling at times, L calf varicosity, const ipation, hemorrhoids, urinary stress incontinence. Last Myocardial Infarction Date:: unknown. History of Any Multi-Drug Resistant Organisms: None Reported Past Surgical History: Appendectomy, Hysterectomy Additional Past Surgical History / Comment(s): cataract removals left/ rt eye with lens implants. Past Anesthesia/Blood Transfusion Reactions: No Reported Reaction Past Psychological History: Anxiety Smoking Status: Never smoker Past Alcohol Use History: None Reported Past Drug Use History: None Reported - Past Family History Mother Family Medical History: Cancer Additional Family Medical History / Comment(s): Mother had breast cancer. Father Family Medical History: No Reported History Additional Family Medical History / Comment(s): Pt states her father was healthy. Medications and Allergies Home Medications Medication Instructions Recorded Confirmed Type amLODIPine BESYLATE [Norvasc] 5 mg PO HS 12/09/16 05/24/20 History Apixaban [Eliquis] 2.5 mg PO BID 01/14/19 05/24/20 History Nitroglycerin Sl Tabs [Nitrostat] 0.4 mg SUBLINGUAL Q5M PRN #25 tab 01/15/19 05/24/20 Rx Cholecalciferol [Vitamin D3 (25 1,000 unit PO DAILY 05/24/20 05/24/20 History Mcg = 1000 Iu)] Docusate [Colace] 100 mg PO BID 05/24/20 05/24/20 History Ibuprofen [Motrin Ib] 200 mg PO HS 05/24/20 05/24/20 History Allergies Allergy/AdvReac Type Severity Reaction Status Date / Time Penicillins Allergy Unknown Verified 05/24/20 13:34 naproxen [From Aleve] AdvReac Unknown Verified 05/24/20 13:35 Physical Exam Vitals: Vital Signs Temp Pulse Pulse Resp BP Pulse Ox 05/24/20 14:28 35 L 16 177/84 98 05/24/20 11:44 39 L 05/24/20 11:38 98.0 F 35 L 16 196/88 98 Intake and Output 05/23/20 05/24/20 05/24/20 22:59 06:59 14:59 Other: Weight 90.718 kg GENERAL EXAM: Patient is alert and oriented and doesn't appear to be in any acute distress HEENT: Normocephalic. Normal reaction of pupils, equal size, normal range of extraocular motion. No erythema or exudates in the throat. NECK: No masses, no nuchal rigidity. CHEST: No chest wall deformity. LUNGS: Equal air entry with no crackles or wheeze. HEART: S1 and S2 normal , systolic murmur heard in the aortic area consistent with aortic stenosis ABDOMEN: No hepatosplenomegaly, normal bowel sounds, no guarding or rigidity. SKIN: No rashes CENTRAL NERVOUS SYSTEM: No focal deficits. EXTREMITIES: No cyanosis, clubbing or edema. Results 05/24/20 11:48 05/24/20 11:48 Cardiac Enzymes 05/24/20 05/24/20 Range/Units 11:48 11:48 AST 24 (14-36) U/L Troponin I <0.012 (0.000-0.034) ng/mL Coagulation 05/24/20 Range/Units 11:48 PT 10.6 (9.0-12.0) sec APTT 25.0 (22.0-30.0) sec CBC 05/24/20 Range/Units 11:48 WBC 6.9 (3.8-10.6) k/uL RBC 4.81 (3.80-5.40) m/uL Hgb 13.8 (11.4-16.0) gm/dL Hct 43.7 (34.0-46.0) % Plt Count 264 (150-450) k/uL Comprehensive Metabolic Panel 05/24/20 Range/Units 11:48 Sodium 140 (137-145) mmol/L Potassium 4.7 (3.5-5.1) mmol/L Chloride 110 H (98-107) mmol/L Carbon Dioxide 23 (22-30) mmol/L BUN 20 H (7-17) mg/dL Creatinine 0.82 (0.52-1.04) mg/dL Glucose 115 H (74-99) mg/dL Calcium 9.4 (8.4-10.2) mg/dL AST 24 (14-36) U/L ALT 20 (4-34) U/L Alkaline Phosphatase 88 (38-126) U/L Total Protein 7.6 (6.3-8.2) g/dL Albumin 4.2 (3.5-5.0) g/dL Current Medications Generic Name Dose Route Start Last Admin Trade Name Freq PRN Reason Stop Dose Admin Acetaminophen 650 mg 05/24/20 13:06 Tylenol Tab PO Q6HR PRN Mild Pain or Fever > 100.5 Amlodipine Besylate 5 mg 05/24/20 21:00 Norvasc PO HS CHAIM Famotidine 20 mg 05/24/20 21:00 Pepcid PO BID CHAIM Isosorbide Mononitrate 15 mg 05/25/20 09:00 Imdur PO DAILY CHAIM Naloxone HCl 0.2 mg 05/24/20 13:06 Narcan IV Q2M PRN Opioid Reversal Nitroglycerin 0.4 mg 05/24/20 13:11 Nitrostat SUBLINGUAL Q5M PRN Chest Pain Intake and Output 05/23/20 05/24/20 05/24/20 22:59 06:59 14:59 Other: Weight 90.718 kg Patient Weight 05/25/20 06:59 Weight 90.718 kg 05/24/20 11:48 05/24/20 11:48 EKG Interpretations (text) Atrial fibrillation with a slow ventricular response and right bundle branch block Assessment and Plan (1) Aortic stenosis Current Visit: Yes Status: Acute Code(s): I35.0 - NONRHEUMATIC AORTIC (VALVE) STENOSIS SNOMED Code(s): 28533600 (2) Bradycardia Current Visit: Yes Status: Acute Code(s): R00.1 - BRADYCARDIA, UNSPECIFIED SNOMED Code(s): 46338838 (3) Chest pain Current Visit: Yes Status: Acute Code(s): R07.9 - CHEST PAIN, UNSPECIFIED SNOMED Code(s): 00805440 (4) Chronic atrial fibrillation Current Visit: Yes Status: Acute Code(s): I48.2 - CHRONIC ATRIAL FIBRILLATION * DO NOT USE * SNOMED Code(s): 154078806 (5) Hypertension Current Visit: No Status: Acute Code(s): I10 - ESSENTIAL (PRIMARY) HYPERTENSION SNOMED Code(s): 80810494 Plan: Continue current medical therapy. Add lisinopril for better control of blood pressure. TSH. Echocardiogram. Hold anticoagulation therapy. Possible pacemaker tomorrow.
[2020-05-24] MEDS: SODIUM CHLORIDE 0.9% 1,000 ML IV SCH (16:24)
--- NOTE | 2020-05-24 17:05 | P.HPIM ---
History of Present Illness H&P Date: 05/24/20 Chief Complaint: Shortness of breath History of presenting complaint: This is a very pleasant 89-year-old patient of Dr. Vera. Chronic stable medical conditions include urinary stress incontinence, osteoarthritis, essential hypertension, anxiety, paroxysmal atrial fibrillation on anticoagulation, GERD hemorrhoids. Patient is here with her daughter. Patient states she's been progressively short of breath more for at least a month. Minimal edema. No cough or chills no fever. No wheezing. Brought in by the EMS. Found to have a low heart rate. In atrial fibrillation. Patient not any beta blockers a heart rate controlling drugs. I saw the patient this afternoon in the ER but the daughter. Review of systems: GEN.: Tired EYES: None HEENT: None NECK: None RESPIRATORY: Short of breath CARDIOVASCULAR: [Occasional chest pain GASTROINTESTINAL: None GENITOURINARY: Incontinence MUSCULOSKELETAL: Joint pains LYMPHATICS: None HEMATOLOGICAL: None PSYCHIATRY: None NEUROLOGICAL: None. Past medical history to include: Escobar fibrillation, GERD, hypertension, osteoarthritis, aortic stenosis, left leg varicosities, hemorrhoids, urinary stress incontinence Social history: No history of smoking or alcohol. Lives with her daughter and son-in-law. Does use a walker also the house. Physical examination: VITAL SIGNS: 98, 35, 16, 1 7794, 98% on 2 L GENERAL: BMI 35.4, sitting up in bed, tired. EYES: Pupils equal. Conjunctiva normal. HEENT: External appearance of nose and ears normal, oral cavity grossly normal. NECK: JVD not raised; masses not palpable. HEART: Heart sounds irregular minimal edema. LUNGS: Respiratory rate increased decreased breath sounds. ABDOMEN: Soft, nontender, liver spleen not palpable, no masses palpable. PSYCH: Alert and oriented x3; mood and affect normal. MUSCULOSKELETAL: Evidence of OA in multiple joints NEUROLOGICAL: Cranial nerves grossly intact; no facial asymmetry, power and sensation grossly intact. LYMPHATICS: No lymph nodes palpable in the axilla and neck INVESTIGATIONS, reviewed in the clinical context: White count 6.9 hemoglobin 13.8 platelets 264 potassium 4.7 creatinine 0.82 Troponin I 0.012, 0.013 ProBNP 1050 TSH 1.7 EKG tracing personally reviewed by [email or web address]-shows atrial fibrillation with a vent ricular rate in the 40s Chest x-ray film personally reviewed by [id number], questionable venous prominence Assessment: --Persistent atrial fibrillation with a slow ventricular rate in the 30s and 40s. Symptomatic. Patient not on rate controlling medications. Will need a permanent pacemaker -GERD -Essential hypertension -Primary osteoarthritis -Chronic urinary stress incontinence -Obesity BMI 35.4 Plan: Home medications resumed. Eliquis has been held. Pathology was consulted. Care was discussed with the patient daughter the bedside. Question were answered. Patient will be needing a permanent pacemaker. Past Medical History Past Medical History: Atrial Fibrillation, Chest Pain / Angina, GERD/Reflux, Hypertension, Osteoarthritis (OA) Additional Past Medical History / Comment(s): Arthritis in multiple joints, palpitations, aortic stenosis, bilateral leg pain and swelling at times for years, L calf varicosity, constipation, hemorrhoids, urinary stress incontinence. Last Myocardial Infarction Date:: unknown. History of Any Multi-Drug Resistant Organisms: None Reported Past Surgical History: Appendectomy, Hysterectomy Additional Past Surgical History / Comment(s): cataract removals left/ rt eye with lens implants. Past Anesthesia/Blood Transfusion Reactions: No Reported Reaction Smoking Status: Never smoker - Past Family History Mother Family Medical History: Cancer Additional Family Medical History / Comment(s): Mother had breast cancer. Father Family Medical History: No Reported History Additional Family Medical History / Comment(s): Pt states her father was healthy. Medications and Allergies Home Medications Medication Instructions Recorded Confirmed Type amLODIPine BESYLATE [Norvasc] 5 mg PO HS 12/09/16 05/24/20 History Apixaban [Eliquis] 2.5 mg PO BID 01/14/19 05/24/20 History Nitroglycerin Sl Tabs [Nitrostat] 0.4 mg SUBLINGUAL Q5M PRN #25 tab 01/15/19 05/24/20 Rx Cholecalciferol [Vitamin D3 (25 1,000 unit PO DAILY 05/24/20 05/24/20 History Mcg = 1000 Iu)] Docusate [Colace] 100 mg PO BID 05/24/20 05/24/20 History Ibuprofen [Motrin Ib] 200 mg PO HS 05/24/20 05/24/20 History Allergies Allergy/AdvReac Type Severity Reaction Status Date / Time Penicillins Allergy Unknown Verified 05/24/20 13:34 naproxen [From Aleve] AdvReac Unknown Verified 05/24/20 13:35 Physical Exam Vitals: Vital Signs Temp Pulse Pulse Resp BP BP Pulse Ox 05/24/20 16:00 98.7 F 34 L 18 179/89 97 05/24/20 14:28 35 L 16 177/84 98 05/24/20 11:44 39 L 05/24/20 11:38 98.0 F 35 L 16 196/88 98 Intake and Output 05/24/20 05/24/20 05/24/20 06:59 14:59 22:59 Other: Weight 90.718 kg 90.718 kg Results CBC & Chem 7: 05/24/20 11:48 05/24/20 11:48 Labs: Abnormal Lab Results - Last 24 Hours (Table) 05/24/20 Range/Units 11:48 Chloride 110 H (98-107) mmol/L BUN 20 H (7-17) mg/dL Glucose 115 H (74-99) mg/dL Thrombosis Risk Factor Assmnt - Choose All That Apply Any of the Below Risk Factors Present?: Yes Each Factor Represents 1 point: Obesity (BMI >25) Other Risk Factors: Yes Each Risk Factor Represents 3 Points: Age 75 years or older Other congenital or acquired thrombophilia - If yes, enter type in comment: No Thrombosis Risk Factor Assessment Total Risk Factor Score: 4 Thrombosis Risk Factor Assessment Level: Moderate Risk
--- NOTE | 2020-05-24 18:00 | ECHOF ---
Referral Reason:aortic stenosis MEASUREMENTS -------- HEIGHT: 160.0 cm WEIGHT: 90.7 kg BP: 177/84 RVIDd: 3.5 cm (< 3.3) IVSd: 1.3 cm (0.6 - 1.1) LVIDd: 4.9 cm (3.9 - 5.3) LVPWd: 1.3 cm (0.6 - 1.1) IVSs: 1.7 cm LVIDs: 2.8 cm LVPWs: 1.7 cm LA Diam: 3.7 cm (2.7 - 3.8) LAESV Index (A-L): 42.19 ml/m Ao Diam: 3.1 cm (2.0 - 3.7) AV Cusp: 1.4 cm (1.5 - 2.6) MV EXCURSION: 15.965 mm (> 18.000) MV EF SLOPE: 34 mm/s (70 - 150) EPSS: 1.3 cm AV maxP.11 mmHg AV meanP.02 mmHg AR PHT: 1386 ms RAP: 5.00 mmHg RVSP: 38.30 mmHg FINDINGS -------- Atrial fibrillation. This was a technically adequate study. The left ventricular size is normal. There is mild concentric left ventricular hypertrophy. Overa ll left ventricular systolic function is low-normal with, an EF between 50 - 55 %. The right ventricle is mildly enlarged. LA is severely dilated >40 ml/m2 The right atrial size is normal. Interatrial and interventricular septum intact. There is moderate aortic valve sclerosis. There is mild aortic regurgitation. There is moderate a ortic stenosis present. Peak/mean gradient across the Aortic Valve is 54.11mmHg / 30.02mmHg. Mild mitral annular calcification present. Mild mitral regurgitation is present. Mild tricuspid regurgitation present. There is mild pulmonary hypertension. The right ventricular systolic pressure, as measured by Doppler, is 38.30mmHg. The pulmonic valve was not well visualized. There is no pulmonic regurgitation present. The aortic root size is normal. Normal inferior vena cava with normal inspiratory collapse consistent with estimated right atrial pre ssure of 5 mmHg. There is no pericardial effusion. CONCLUSIONS -------- 1. There is mild concentric left ventricular hypertrophy. 2. Overall left ventricular systolic function is low-normal with, an EF between 50 - 55 %. 3. The right ventricle is mildly enlarged. 4. LA is severely dilated >40 ml/m2 5. There is moderate aortic valve sclerosis. 6. There is mild aortic regurgitation. 7. There is moderate aortic stenosis present. 8. Peak/mean gradient across the Aortic Valve is 54.11mmHg / 30.02mmHg. 9. Mild mitral annular calcification present. 10. Mild mitral regurgitation is present. 11. Mild tricuspid regurgitation present. 12. There is mild pulmonary hypertension. 13. There is no pericardial effusion. LEADERSHIP COACH: Liliam Garcia RDCS
[2020-05-24] MEDS: FAMOTIDINE 20 MG TAB PO SCH (19:45)
[2020-05-24] MEDS: amLODIPine 5 MG TAB PO SCH (19:45)
[2020-05-24] MEDS ORDERED: ATROPINE SULFATE 0.1 MG/ML 10ML SYRINGE ONE (22:06)
[2020-05-24] MEDS ORDERED: DEXTROSE/WATER 1 250ML.BAG with DOPamine DRIP 800 MG IV SCH (22:30)
[2020-05-25] MEDS: FAMOTIDINE 20 MG TAB PO SCH ×2 (08:01→19:53)
[2020-05-25] MEDS ORDERED: ISOSORBIDE MONONITRATE ER 15 MG TAB PO SCH (09:00)
[2020-05-25] MEDS ORDERED: CLINDAMYCIN 900 MG in DEXTROSE 5% IN WATER 50 ML IVPB STA ×2 (12:01)
[2020-05-25] MEDS ORDERED: CLINDAMYCIN 600 MG in SODIUM CHLORIDE 0.9% IRRIGATIO 250 ML IRRIGATION ONE (12:01)
[2020-05-25] MEDS ORDERED: SODIUM CHLORIDE 0.9% 250 ML IV ONE (14:45)
[2020-05-25] MEDS ORDERED: IOPAMIDOL-250 50ML BTL IV ONE (14:50)
[2020-05-25] MEDS ORDERED: fentaNYL (PF) 50 MCG/ML 2 ML AMP IVP ONE (15:02)
[2020-05-25] MEDS ORDERED: LIDOCAINE 1% INJ 10MG/ML (20 ML MDV) ONE ×2 (15:02)
[2020-05-25] MEDS ORDERED: MIDAZOLAM 2 MG/2 ML VIAL IVP ONE (15:02)
[2020-05-25] MEDS ORDERED: fentaNYL (PF) 50 MCG/ML 2 ML AMP ONE (15:05)
[2020-05-25] MEDS ORDERED: LIDOCAINE 1% INJ 10MG/ML (20 ML MDV) SQ ONE (15:06)
[2020-05-25] MEDS ORDERED: METOPROLOL TARTRATE 5 MG/5 ML VIAL IVP ONE ×2 (15:49→15:50)
[2020-05-25] MEDS ORDERED: ACETAMINOPHEN TAB 325 MG TAB PO PRN (16:10)
--- NOTE | 2020-05-25 16:19 | P.PCN ---
Date of Procedure: 05/25/20 Preoperative Diagnosis: Atrial fibrillation, severe bradycardia and dizziness and shortness of breath. Patient also has aortic stenosis Postoperative Diagnosis: Same Procedure(s) Performed: Successful implantation of single-chamber pacemaker Description of Procedure: HISTORY: This is a 89-year-old female with history of chronic atrial fibrillation who was admitted to the hospital with not feeling well and dizzy and significant bradycardia. Patient is not on any rate admission medications. Patient is also noted to have moderate to severe aortic stenosis. Patient is advised to have permanent pacemaker implantation. CONSENT:I have discussed the risks, benefits and alternative therapies for the above-mentioned procedure and for both sedation/analgesia as well as necessary blood product administration, if indicated, as they pertain to this patient. The patient has indicated understanding and acceptance of the risks and procedures discussed. PROCEDURE: Patient was brought to the lab in a fasting state. Patient was prepped and draped in the usual fashion. Patient was given IV sedation with fentanyl and Versed. The skin below the left clavicle was infiltrated with lidocaine. An incision was made parallel to deltopectoral groove was deepened until the pectoral fascia was exposed. A pocket was created by blunt dissection and cautery. Axillary venography was performed to delineate the course of the axillary vein. A single stick was performed into extrathoracic portion of the axillary vein and a single sheath was advanced over the guidewires and left in subclavian vein. There is also single arterial stick Conscious Sedation: Versed 0.5mg Fentanyl 12.5 g Duration 61minutes LEADS: VENTRICULAR: This is manufactured by [employer]. Model number is 4074/52 and the serial number is [id number] The device: This is manufactured by [employer], model number is W3RR01 and the serial number is [id number]. The ventricular lead is maneuvered l with help of a straight and curved stylets into the left ventricle apical region. Satisfactory position was obtained and threshold measurements were made. THRESHOLDS: VENTRICLE: The minimal patient threshold was 0.5 at pulse width of 0.5. Impedance is 1083 R-wave:4.5 to 5 volts The leads and pulse generator remained in the pocket after it was washed with antibiotics. Pocket was closed in the usual fashion. The fascia was closed with 2-0 Prolene ,the subcutaneous tissue was closed with 3-0 Prolene and the skin was closed with 4-0 Prolene. PROGRAMMING: MODE: VVIR RATE: 60- 110 OUTPUT: Ventricle: 3.5V FINAL IMPRESSION: #1. Axillary venography #2. Successful implantation of single-chamber pacemaker COMPLICATIONS: None PLAN: Continue prophylactic antibiotics. Monitored on the telemetry unit. Chest x-ray in the morning. Possible discharge in 24-48 hours.
[2020-05-25] MEDS: amLODIPine 5 MG TAB PO SCH (19:53)
[2020-05-25] MEDS ORDERED: DEXTROSE/WATER 1 250ML.BAG with DOPamine DRIP 800 MG IV SCH (21:00)
[2020-05-25] MEDS ORDERED: CLINDAMYCIN 900 MG in DEXTROSE 5% IN WATER 50 ML IVPB SCH ×2 (21:00)
--- NOTE | 2020-05-25 22:14 | P.PN ---
Progress Note - Text Progress Note Date: 05/25/20 Chief Complaint: Shortness of breath History of presenting complaint: This is a very pleasant 89-year-old patient of Dr. Vera. Chronic stable medical conditions include urinary stress incontinence, osteoarthritis, essential hypertension, anxiety, paroxysmal atrial fibrillation on anticoagulation, GERD hemorrhoids. Patient is here with her daughter. Patient states she's been progressively short of breath more for at least a month. Minimal edema. No cough or chills no fever. No wheezing. Brought in by the EMS. Found to have a low heart rate. In atrial fibrillation. Patient not any beta blockers a heart rate controlling drugs. Admitted with-atrial fibrillation with a very slow ventricular rate causing shortness of breath. Today-saw the patient this morning. Laying in bed. Awake. Pending to go down for a pacemaker placement. Review of systems: Was done for constitutional, cardiovascular, GI, pulmonary. relevant finding as above Active Medications Acetaminophen (Tylenol Tab) 650 mg PO Q6HR PRN PRN Reason: Mild Pain or Fever > 100.5 Amlodipine Besylate (Norvasc) 5 mg PO HS [facility] Last Admin: 05/25/20 19:53 Dose: 5 mg Documented by: Famotidine (Pepcid) 20 mg PO BID [facility] Last Admin: 05/25/20 19:53 Dose: 20 mg Documented by: Sodium Chloride (Saline 0.9%) 1,000 mls @ 20 mls/hr IV .Q24H [facility] Last Admin: 05/24/20 16:24 Dose: Not Given Documented by: Dopamine HCl/Dextrose 800 mg/ (IV Solution) 250 mls @ 8.25 mls/hr IV .Q24H [facility] Naloxone HCl (Narcan) 0.2 mg IV Q2M PRN PRN Reason: Opioid Reversal Nitroglycerin (Nitrostat) 0.4 mg SUBLINGUAL Q5M PRN PRN Reason: Chest Pain Sodium Chloride (Saline Flush) 10 ml IV Q12HR [facility] Physical examination: VITAL SIGNS: 97.8, 34, 18, 139/46, 94% on room air GENERAL: Laying in bed, awake EYES: Pupils equal. Conjunctiva normal. HEENT: External appearance of nose and ears normal, oral cavity grossly normal. NECK: JVD not raised; masses not palpable. HEART: Heart sounds irregular minimal edema. LUNGS: Respiratory rate increased decreased breath sounds. ABDOMEN: Soft, nontender, liver spleen not palpable, no masses palpable. PSYCH: Alert and oriented x3; mood and affect normal. MUSCULOSKELETAL: Evidence of OA in multiple joints INVESTIGATIONS, reviewed in the clinical context: White count 6.9 hemoglobin 13.8 platelets 264 potassium 4.7 creatinine 0.82 Troponin I 0.012, 0.013 ProBNP 1050 TSH 1.7 EKG tracing personally reviewed by me-shows atrial fibrillation with a ventricular rate in the 40s Chest x-ray film personally reviewed by [id number], questionable venous prominence Assessment: --Persistent atrial fibrillation with a slow ventricular rate in the 30s and 40s. Symptomatic. Patient not on rate controlling medications.-Patient later this afternoon underwent a single-chamber permanent pacemaker -GERD -Essential hypertension -Primary osteoarthritis -Chronic urinary stress incontinence -Obesity BMI 35.4 Plan: -Continue current medication treatment plan. Eliquis to be resumed when okay with cardiology. Other medications to continue.
[2020-05-26 06:25] LABS: Basophils # (A) 0.1 k/uL (0-0.2); Basophils % (A) 1 %; Eosinophils # (A) 0.1 k/uL (0-0.7); Eosinophils % (A) 1 %; HCT 39.8 % (34.0-46.0); HGB 12.4 gm/dL (11.4-16.0); Lymphocytes # (A) 3.6 k/uL (1.0-4.8); Lymphocytes % (A) 39 %; MCH 28.4 pg (25.0-35.0); MCHC 31.1 g/dL (31.0-37.0); MCV 91.3 fL (80.0-100.0); Mean Platelet Volume 7.7; Monocytes # (A) 0.5 k/uL (0-1.0); Monocytes % (A) 5 %; Neutrophils # (A) 4.9 k/uL (1.3-7.7); Neutrophils % (A) 53 %; Platelet Count 212 k/uL (150-450); RBC 4.35 m/uL (3.80-5.40); RDW 14.2 % (11.5-15.5); WBC 9.2 k/uL (3.8-10.6)
--- NOTE | 2020-05-26 07:26 | XR ---
EXAMINATION TYPE: XR chest 2V DATE OF EXAM: 05/26/2020 COMPARISON: Prior chest x-ray 05/24/2020 HISTORY: Lead placement check TECHNIQUE: Frontal and lateral views of the chest are obtained. FINDINGS: There is been interval placement of a generator in left pectoral region, lead is present i n the right ventricle. The heart remains enlarged. There is no evident pneumothorax or pleural effusi on. Some probable areas of scarring or atelectasis are stable. Aorta is dense. IMPRESSION: No evident complication status post pacemaker placement.
[2020-05-26 07:29] VITALS: PULSE 60; RESP 16
[2020-05-26] MEDS: FAMOTIDINE 20 MG TAB PO SCH (08:00)
[2020-05-26] MEDS: SODIUM CHLORIDE 0.9% 1,000 ML IV SCH (09:56)
[2020-05-26 11:36] VITALS: BP 150/66; TEMP 98.1
[2020-05-26] MEDS ORDERED: LISINOPRIL-HCTZ 10-12.5 MG 1 EACH TAB PO SCH (12:30)
--- NOTE | 2020-05-26 13:21 | P.PN ---
Subjective Progress Note Date: 05/26/20 This is a 89-year-old female with history of chronic atrial fibrillation and also mild to moderate aortic stenosis who is admitted to the hospital with complaints of not feeling well. She claims that her periods where she feels shaky. She had no syncopal episodes. She may be slightly dizzy at times. She had episode of chest pain this morning and took 2 nitroglycerin with some relief. He has had episodes of chest pain in the past. Her EKG showed atrial fibrillation with slow ventricular response. Heart rate is in the 30s and 40s. She seemed to be reasonably comfortable at the time of my examination . Her blood pressure is high. We're going to get an echocardiogram to assess LV function and also to assess aortic stenosis. We will get thyroid function studies. If the thyroid functions are normal and if the heart rate remains slow, patient could be considered for permanent pacemaker implantation. We'll also check her aortic valve stenosis. Meanwhile patient will continue current medical therapy 05/26: The patient is seen resting in bed. She denies having any new complaints. She does complain of some chest wall discomfort at the pacemaker site. No significant erythema or edema is noted. She has been up and ambulated to the bathroom with no lightheadedness or dizziness. Patient has been afebrile, heart rate 60, blood pressure 150/66, pulse ox 95% on room air. CBC is unremarkable. TSH 1.740. Echocardiogram reveals EF of 50-55% with LAD severely dilated greater than 40 mL stem to, moderate aortic valve sclerosis, mild aortic regurgitation, moderate aortic stenosis, mild mitral regurgitation, mild tricuspid regurgitation, mild pulmonary hypertension. Pacemaker interrogation has been completed which was normal. Chest x-ray showed no complications from pacemaker insertion. Physical examination GENERAL EXAM: Patient is alert and oriented and doesn't appear to be in any acute distress HEENT: Normocephalic. Normal reaction of pupils, equal size, normal range of extraocular motion. No erythema or exudates in the throat. NECK: No masses, no nuchal rigidity. CHEST: No chest wall deformity. LUNGS: Equal air entry with no crackles or wheeze. Pacemaker noted to the left anterior upper chest wall. Small amount of dried blood on the dressing. Left arm sling in place. HEART: S1 and S2 normal , systolic murmur heard in the aortic area consistent with aortic stenosis ABDOMEN: No hepatosplenomegaly, normal bowel sounds, no guarding or rigidity. SKIN: No rashes CENTRAL NERVOUS SYSTEM: No focal deficits. EXTREMITIES: No cyanosis, clubbing or edema. Assessment Bradycardia status post pacemaker Moderate aortic stenosis Chronic atrial fibrillation Hypertension Chest pain Plan Patient is cleared for discharge home Follow-up with Dr. Monzon in one week Nurse practitioner note has been reviewed, I agree with documented findings and plan of care. Patient was seen and examined. Objective - Vital Signs Vital signs: Vital Signs Temp 96.8 F L 05/26/20 07:28 Pulse 60 05/26/20 08:00 Resp 16 05/26/20 08:00 BP 164/69 05/26/20 07:28 Pulse Ox 97 05/26/20 07:28 Intake & Output 05/25/20 05/26/20 05/26/20 18:59 06:59 18:59 Intake Total 106 540 100 Balance 106 540 100 Weight 82.5 kg Intake: IV 106 Oral 540 100 Other: Voiding Method Toilet Toilet Toilet # Voids 1 2 1 - Labs CBC & Chem 7: 05/26/20 06:04 05/24/20 11:48
--- NOTE | 2020-05-26 18:29 | P.DS ---
Providers Date of admission: 05/24/20 13:06 Expected date of discharge: 05/26/20 Attending physician: Avila Martinez Consults: 05/24/20 13:07 Consult Physician Urgent Consulting Provider: Yina Walker Consult Reason/Comments: atrial fibrillation with slow ventricular response Do you want consulting provider notified?: Already Contacted Primary care physician: [facility] Course: Chief Complaint: Shortness of breath History of presenting complaint: This is a very pleasant 89-year-old patient of Dr. Vera. Chronic stable medical conditions include urinary stress incontinence, osteoarthritis, essential hypertension, anxiety, paroxysmal atrial fibrillation on anticoagulation, GERD hemorrhoids. Patient is here with her daughter. Patient states she's been progressively short of breath more for at least a month. Minimal edema. No cough or chills no fever. No wheezing. Brought in by the EMS. Found to have a low heart rate. In atrial fibrillation. Patient not any beta blockers a heart rate controlling drugs. Admitted with-atrial fibrillation with a very slow ventricular rate causing shortness of breath. Single-chamber permanent pacemaker placed. Today-doing well. No more shortness of breath. Discussed with the patient. Discussed with Dr. Francia Alejandre to [place]. [employer]: Dr. Francia Love from cardiology Physical examination: VITAL SIGNS: 98.1, 60, 16, 150/66, 95% room air GENERAL: Sitting up the edge of bed, comfortable EYES: Pupils equal. Conjunctiva normal. HEENT: External appearance of nose and ears normal, oral cavity grossly normal. NECK: JVD not raised; masses not palpable. HEART: Heart sounds irregular minimal edema. LUNGS: Respiratory rate normal, decreased breath sounds. ABDOMEN: Soft, nontender, liver spleen not palpable, no masses palpable. PSYCH: Alert and oriented x3; mood and affect normal. MUSCULOSKELETAL: Evidence of OA in multiple joints INVESTIGATIONS, reviewed in the clinical context: White count 9.2 hemoglobin 12.4 Previous testing White count 6.9 hemoglobin 13.8 platelets 264 potassium 4.7 creatinine 0.82 Troponin I 0.012, 0.013 ProBNP 1050 TSH 1.7 EKG tracing personally reviewed by me-shows atrial fibrillation with a ventricular rate in the 40s Chest x-ray film personally reviewed by [id number], questionable venous prominence Assessment: --Persistent atrial fibrillation with a slow ventricular rate in the 30s and 40s. Symptomatic. Patient not on rate controlling medications.-- single- chamber permanent pacemaker -GERD -Essential hypertension -Primary osteoarthritis -Chronic urinary stress incontinence -Obesity BMI 35.4 Disposition: Home Patient Condition at Discharge: Stable Plan - Discharge Summary Discharge Rx Participant: No New Discharge Prescriptions: New Acetaminophen Tab [Tylenol] 650 mg PO Q6HR PRN tab PRN Reason: Mild Pain Or Fever > 100.5 Lisinopril-Hctz 10-12.5 mg [Zestoretic 10-12.5] 1 each PO DAILY #30 tab Continue amLODIPine BESYLATE [Norvasc] 5 mg PO HS Apixaban [Eliquis] 2.5 mg PO BID Nitroglycerin Sl Tabs [Nitrostat] 0.4 mg SUBLINGUAL Q5M PRN #25 tab PRN Reason: Chest Pain Ibuprofen [Motrin Ib] 200 mg PO HS Docusate [Colace] 100 mg PO BID Cholecalciferol [Vitamin D3 (25 Mcg = 1000 Iu)] 1,000 unit PO DAILY Discharge Medication List amLODIPine BESYLATE [Norvasc] 5 mg PO HS 12/09/16 [History] Apixaban [Eliquis] 2.5 mg PO BID 01/14/19 [History] Nitroglycerin Sl Tabs [Nitrostat] 0.4 mg SUBLINGUAL Q5M PRN #25 tab 01/15/19 [Rx] Cholecalciferol [Vitamin D3 (25 Mcg = 1000 Iu)] 1,000 unit PO DAILY 05/24/20 [History] Docusate [Colace] 100 mg PO BID 05/24/20 [History] Ibuprofen [Motrin Ib] 200 mg PO HS 05/24/20 [History] Acetaminophen Tab [Tylenol] 650 mg PO Q6HR PRN tab 05/26/20 [Rx] Lisinopril-Hctz 10-12.5 mg [Zestoretic 10-12.5] 1 each PO DAILY #30 tab 05/26/20 [Rx] Follow up Appointment(s)/Referral(s): [facility], [Other] - 1 Week (Please call [facility] at [phone] to schedule appointment with pacemaker clinic. Office currently closed. ) Jaylan Vera DO [Primary Care Provider] - 1-2 days (Please call to make follow up appointment. office currently closed. ) Patient Instructions/Handouts: Pacemaker (DC) Activity/Diet/Wound Care/Special Instructions: ppm- ORDERS Discharge Disposition: HOME SELF-CARE
== END 2020-05-26 13:56 | disposition home or self-care (01) | DRG 244 ==
LOC: EC 11:37 → 3SCARD 13:06
PROVIDERS: ADMIT Hospitalist; ATTEND Hospitalist
PROC: 02HK3JZ Insertion of Pacemaker Lead into Right Ventricle, Percutaneous Approach (ICD-10-PCS; principal; 2020-05-25 14:00)
PROC: 0JH604Z Insertion of Pacemaker, Single Chamber into Chest Subcutaneous Tissue and Fascia, Open Approach (ICD-10-PCS; principal; 2020-05-25 14:00)
DX: I48.19 Other persistent atrial fibrillation (principal); E66.9 Obesity, unspecified; K21.9 Gastro-esophageal reflux disease without esophagitis; I27.20 Pulmonary hypertension, unspecified; F41.9 Anxiety disorder, unspecified; R00.1 Bradycardia, unspecified; Z96.1 Presence of intraocular lens; M06.9 Rheumatoid arthritis, unspecified; M19.91 Primary osteoarthritis, unspecified site; I11.9 Hypertensive heart disease without heart failure; N39.3 Stress incontinence (female) (male); I35.0 Nonrheumatic aortic (valve) stenosis; Z11.59 Encounter for screening for other viral diseases; Z79.899 Other long term (current) drug therapy; Z79.01 Long term (current) use of anticoagulants; Z68.35 Body mass index [BMI] 35.0-35.9, adult; Z88.8 Allergy status to other drugs, medicaments and biological substances; Z88.0 Allergy status to penicillin; Z90.49 Acquired absence of other specified parts of digestive tract; Z98.42 Cataract extraction status, left eye; Z98.41 Cataract extraction status, right eye; Z98.890 Other specified postprocedural states; Z90.710 Acquired absence of both cervix and uterus; Z80.3 Family history of malignant neoplasm of breast
CPT/HCPCS: 33207; 36415; 71045; 71046; 80053; 83735; 83880; 84443; 84484; 85025; 85610; 85730; 93005; 93306; 99291